=== PATIENT | male | born 1945 | race Caucasian/White ===

== ENCOUNTER 2017-07-21 07:22 | Day surgery (SDC) | payer OTHER ==
[~2017-07-21] VITALS: Ht 177.8 cm; Wt 120.8 kg
[2017-07-21] MEDS ORDERED: LISI20 PO (08:15)
[2017-07-21] MEDS ORDERED: GABA400 PO (08:16)
[2017-07-21] MEDS ORDERED: FURO20 PO (08:16)
[2017-07-21] MEDS ORDERED: CITA20 PO (08:17)
[2017-07-21] MEDS ORDERED: TERA5 PO (08:17)
[2017-07-21] MEDS ORDERED: LEVSOD50 PO (08:18)
[2017-07-21] MEDS ORDERED: Omeprazole20 M1 PO (08:18)
[2017-07-21] MEDS ORDERED: NORT25 PO (08:18)
[2017-07-21] MEDS ORDERED: Amlodipine Besyl5 MG PO (08:19)
[2017-07-21] MEDS ORDERED: Norco 5-325 Ta1 EACH PO (08:19)
== END 2017-07-21 10:40 | disposition home or self-care (01) ==
LOC: ORSCSDS 07:22
PROVIDERS: Ophthalmology
PROC: 08B Eye, Excision (ICD-10-PCS; principal; 2017-07-21 09:00)
DX: H02.045 Spastic entropion of left lower eyelid (principal); I10 Essential (primary) hypertension; Z79.899 Other long term (current) drug therapy; Z79.82 Long term (current) use of aspirin; E66.01 Morbid (severe) obesity due to excess calories; Z68.38 Body mass index [BMI] 38.0-38.9, adult
CPT/HCPCS: J2250; J3010; J7040

== ENCOUNTER 2018-08-22 22:48 | Inpatient (IN) | payer MEDICARE ==
[~2018-08-22] VITALS: Ht 177.8 cm; Wt 101.9 kg
[~2018-08-22 22:48] MED LIST: Amlodipine Besyl5 MG PO; CITA20 PO; FURO20 PO; GABA400 PO; LEVSOD50 PO; LISI20 PO; NORT25 PO; Norco 5-325 Ta1 EACH PO; Omeprazole20 M1 PO; TERA5 PO
[2018-08-22] MEDS ORDERED: Hydrochloroth12.5 MG PO (23:16)
[2018-08-22] MEDS ORDERED: ASPI81CH PO (23:18)
[2018-08-22] MEDS ORDERED: OMEG1CAP30 (23:18)
[2018-08-23 01:18] LABS: Source, Urine Catheter
[2018-08-23 01:25] LABS: BASOPHILS ABSOLUTE AUTO 0.09 K/mm3 (0.00-0.23); BASOPHILS PERCENT AUTO 1 % (0-2); EOSINOPHILS PERCENT AUTO 3 % (0-6); Hematocrit 41.2 % (37.0-53.0); IMMATURE GRAN ABSOLUTE AUTO 0.04 K/mm3 (0.00-0.10); IMMATURE GRAN PERCENT AUTO 0 % (0-1); LYMPHOCYTES ABSOLUTE AUTO 1.96 K/mm3 (0.84-5.20); LYMPHOCYTES PERCENT AUTO 21 % (21-46); MONOCYTES ABSOLUTE AUTO 0.82 K/mm3 (0.16-1.47); MONOCYTES PERCENT AUTO 9 % (4-13); Mean Corpuscular HGB 27.5 pg (26.0-34.0); Mean Corpuscular HGB Conc 31.6 g/dL (31.5-36.5); Mean Corpuscular Volume 87 fL (80-100); Mean Platelet Volume 10.5 fL (9.1-12.4); NEUTROPHILS ABSOLUTE AUTO 6.17 K/mm3 (1.96-9.15); NEUTROPHILS PERCENT AUTO 66 % (41-73); Platelet Count 298 K/mm3 (150-400); RDW Coefficient Variation 15.1 % (11.7-14.2); RDW Standard Deviation 48.4 fL (35.1-46.3); Red Blood Cell Count 4.72 M/mm3 (4.30-5.90); White Blood Cell Count 9.38 K/mm3 (4.00-11.30)
[2018-08-23 01:26] LABS: Bilirubin, Urine Neg (Neg); Blood, Urine 4+ (Neg); Glucose Qualitative, Urine Neg (Neg); Ketones, Urine Neg (Neg); Leukocyte Esterase, Urine Neg (Neg); Nitrite, Urine Neg (Neg); Protein, Urine 3+ (Neg); Urobilinogen, Urine NORM (Normal)
[2018-08-23 01:31] LABS: Appearance, Urine Clear (Clear); Color, Urine Yellow (P-Yellow)
[2018-08-23 01:32] LABS: Squamous Epithelial Cells Rare /hpf (Few); White Blood Cells, Urine 0-2 /hpf (0-5)
[2018-08-23 01:33] LABS: Amorphous Light (0-Heavy); Bacteria Few /hpf
[2018-08-23 01:43] LABS: Alanine Aminotransfer (ALT/SGP 30 U/L (12-78); Albumin, Blood 3.8 g/dL (3.4-5.0); Alk Phos 77 U/L (50-136); Anion Gap 11 mmol/L (6-16); Aspartate Aminotrans (AST/SGOT 17 U/L (12-37); Bilirubin, Total 0.3 mg/dL (0.1-1.0); Blood Urea Nitrogen 13 mg/dL (8-24); Bun/Creatinine Ratio 12.4 (12.0-20.0); CO2, Blood 25 mmol/L (21-32); Chloride, Blood 105 mmol/L (98-108); Creatinine, Blood 1.05 mg/dL (0.60-1.20); Globulin, Blood 3.7 g/dL (2.2-4.0); Glomerular Filtration Rate >60 (60-); Glucose, Blood 164 mg/dL (70-99); Potassium, Blood 3.5 mmol/L (3.5-5.5); Sodium, Blood 141 mmol/L (136-145); Total Protein, Blood 7.5 g/dL (6.4-8.2)
--- NOTE | 2018-08-23 03:04 | NUR ---
ASSUMING CARE RECEIVED PT REPORT FROM ER NURSE. PT IS BEING ADMITTED DUE TO ANGIOEDEMA. PT IS INTUBATED. PT ARRIVED TO ICU AT APPROX 0135. PT TRANSPORTED VIA STRETCHER WITH ER, RN AND RT. AT THE TIME OF ARRIVAL TO THE UNIT PT VENT SETTINGS ARE AC 15, TV 500, FIO2 60% AND PEEP 5. PT SPO2 IS MAINTAINING IN THE LOW 90'S AT THIS TIME. PT HAS COPIOUS AMOUNTS OF ORAL SECRETIONS. ORAL SECRETIONS ARE STRINGY AND CLEAR. PT TONGUE IS SWOLLEN AND QUITE LARGE AT THIS TIME. OG TUBE IN PLACE, OG PLACED TO LIS AT THE TIME OF ARRIVAL TO UNIT. PT LUNG SOUNDS ARE CLEAR AND DIM IN THE BASES. PT HAS MINIMAL SECRETIONS FROM ET TUBE AT THIS TIME. PT IS RECEIVING PROPOFOL AT 75MCG/KG/MIN AT THE TIME OF ARRIVAL TO UNIT. PT IS AGGITATED AND PULLING AT RESTRAINTS. IV INSPECTED AND FOUND TO BE INFULTRATED. PROPOFOL CHANGED TO PATENT IV LINE AND RATE TITRATED DOWN TO 35MCG/KG/MIN WITH DESIRED EFFECT. PT HAS MEDEL TEMP PROBE IN PLACE, CURRENTLY PATENT AND DRAINING CLEAR YELLOW URINE TO GRAVITY. PT IS AFEBRILE AT THIS TIME. ASSUMING CARE OF PT AT THE TIME OF ARRIVAL TO UNIT. WILL CONTINUE TO MONITOR PT.
[2018-08-23 03:43] LABS: Hematocrit 38.4 % (37.0-53.0); Mean Corpuscular HGB 27.1 pg (26.0-34.0); Mean Corpuscular HGB Conc 31.3 g/dL (31.5-36.5); Mean Corpuscular Volume 87 fL (80-100); Mean Platelet Volume 10.2 fL (9.1-12.4); Platelet Count 291 K/mm3 (150-400); RDW Coefficient Variation 15.2 % (11.7-14.2); RDW Standard Deviation 47.8 fL (35.1-46.3); Red Blood Cell Count 4.43 M/mm3 (4.30-5.90); White Blood Cell Count 12.39 K/mm3 (4.00-11.30)
[2018-08-23 04:02] LABS: Alanine Aminotransfer (ALT/SGP 29 U/L (12-78); Albumin, Blood 3.4 g/dL (3.4-5.0); Alk Phos 67 U/L (50-136); Anion Gap 9 mmol/L (6-16); Aspartate Aminotrans (AST/SGOT 17 U/L (12-37); Bilirubin, Total 0.5 mg/dL (0.1-1.0); Blood Urea Nitrogen 15 mg/dL (8-24); Bun/Creatinine Ratio 12.7 (12.0-20.0); CO2, Blood 25 mmol/L (21-32); Calcium, Blood 8.4 mg/dL (8.5-10.1); Chloride, Blood 106 mmol/L (98-108); Creatinine, Blood 1.18 mg/dL (0.60-1.20); Globulin, Blood 3.4 g/dL (2.2-4.0); Glomerular Filtration Rate >60 (60-); Glucose, Blood 205 mg/dL (70-99); Potassium, Blood 3.9 mmol/L (3.5-5.5); Sodium, Blood 140 mmol/L (136-145); Total Protein, Blood 6.8 g/dL (6.4-8.2)
--- NOTE | 2018-08-23 06:48 | NUR ---
SHIFT SUMAMRY NOTE PT REMAINS INTUBATED AT THIS TIME. PT VENT SETTINGS REMAIN UNCHANGED WITH AC 15, TV 500, FIO2 60% AND PEEP 5. PT SPO2 HAS MAINTAINED IN THE LOW 90'S THROUGH THE NIGHT. PT TONGUE AND LIPS REMAIN SWOLLEN, THOUGH SWELLING DOES APPEAR TO BE SOMEWHAT IMPROVED. PT CONTINUES TO HAVE MEDEL TEMP PROBE IN PLACE. PT URINE AT THE END OF SHIFT WAS NOTED TO BE CLOUDY, WITH SOME SEDIMENT. PT HR HAS MAINTAINED IN THE 60-70'S THROUGH THE NIGHT. PT BP HAS BEEN LABILE WITH TITRATION OF PROPOFOL. PT IS RECEIVING PROPOFOL AT 40MCG/KG/MIN AT THIS TIME. PT IS WELL SEDATED ON 40MCG/KG/MIN, WITH TITRATION DOWN OF PROPOFOL PT WILL BEGIN TO THRASH IN BED AND PULL AT RESTRAINTS VERY VIGOROUSLY. PT DOES NOT APPEAR TO BE ABLE TO FOLLOW COMMANDS OR BE REDIRECTABLE AT THESE TIMES AND REQUIRES INCREASED AMOUNTS OF PROPOFOL. [facility]
--- NOTE | 2018-08-23 10:20 | NUR ---
PT CURRENTLY CALM AND RESTING ON 40MCG OF PROFOL. VSS. PT IS RESTRAINED. ET TUBE 8.0 AND FULLY COVERED, WILL CHECK WITH RT FOR PLACEMENT. OG TO LIS WITH MINIMAL RETURN.
--- NOTE | 2018-08-23 10:24 | NUR ---
0930 PT AWAKE AND ABLE TO FOLLOW COMMANDS AFTER X-RAY AND WAS REACHING FOR ET TUBE. TONGUE REMAINS QUITE SWOLLEN AND PROTRUDING. WILL CALL THIS THE SHIFT SEDATION VACATION DUE TO LEVEL OF AGIATTION AND INC. POTENTIAL FOR SELF EXTUBATION. LR TO BE STARTED AT 100ML. PT IS 60% FIO2 NOW AND PEEP HAS BEEN INC. TO [address] TONY, SATS LOW 90 RANGE. WILL FOLLOW SEDATION NEEDS.
--- NOTE | 2018-08-23 15:26 | NUR ---
1215 PT REPOSITIONED TO R SIDE AND BECAME QUITE RESTLES AND AGITATED. PROPOFOL WAS INEFFECTIVE EVEN WITH HIGHER DOSE AND THIS LASTED FOR OVER [address] TONY WAS CONTACTED AND NEW ATIVAN AND FENTANYL ORDERS STARTED AND PT ASSSITING WELL. PROPOFOL WAS DEC TO 60 MCG AND WILL FOLLOW.
--- NOTE | 2018-08-23 18:53 | NUR ---
PT HAS REMAINED CALM WITH PRIOR PRN MEDS AND CURRENT PROPOFOL AT 50MCG. I/O NOTED. PT HAS BEEN SR WITH 1ST DEG. AV BLOCK. PT REMAINS IN RESTRAINTS AND CHARTED. FAMILY HAS BEEN IN AND MADE AWARE OF PT STATUS. LR REMAINS AT 100ML.
--- NOTE | 2018-08-23 19:15 | NUR ---
ASSUMED CARE PT INTUBATED WITH CURRENT VENT SETTINGS OF AC15/500/60%/10 AND SEDATED VIA PROPOFOL AT 50MCG/KG/MIN, LR AT 100ML/HR. PT RESPONDS BY OPENING EYES TO PAIN THEN SPONTANEOUSLY AND IS RESTLESS. FENTANYL GIVEN PER EMAR. LOWER LIP REMAINS SWOLLEN BUT IMPROVED PER AM RN. BP STABLE, ECG SHOWS SR W/ FIRST DEGREE AV BLOCK AND O2 SATS MID 90'S.
[2018-08-24 03:59] LABS: BASOPHILS ABSOLUTE AUTO 0.01 K/mm3 (0.00-0.23); BASOPHILS PERCENT AUTO 0 % (0-2); EOSINOPHILS PERCENT AUTO 0 % (0-6); Hemoglobin 11.1 g/dL (13.5-17.5); IMMATURE GRAN ABSOLUTE AUTO 0.11 K/mm3 (0.00-0.10); IMMATURE GRAN PERCENT AUTO 1 % (0-1); LYMPHOCYTES ABSOLUTE AUTO 0.83 K/mm3 (0.84-5.20); LYMPHOCYTES PERCENT AUTO 6 % (21-46); MONOCYTES ABSOLUTE AUTO 0.49 K/mm3 (0.16-1.47); MONOCYTES PERCENT AUTO 4 % (4-13); Mean Corpuscular HGB 27.6 pg (26.0-34.0); Mean Corpuscular HGB Conc 31.7 g/dL (31.5-36.5); Mean Corpuscular Volume 87 fL (80-100); Mean Platelet Volume 10.3 fL (9.1-12.4); NEUTROPHILS ABSOLUTE AUTO 11.61 K/mm3 (1.96-9.15); NEUTROPHILS PERCENT AUTO 89 % (41-73); Platelet Count 267 K/mm3 (150-400); RDW Coefficient Variation 15.2 % (11.7-14.2); RDW Standard Deviation 48.5 fL (35.1-46.3); Red Blood Cell Count 4.02 M/mm3 (4.30-5.90); White Blood Cell Count 13.05 K/mm3 (4.00-11.30)
[2018-08-24 04:20] LABS: Alanine Aminotransfer (ALT/SGP 25 U/L (12-78); Albumin, Blood 2.9 g/dL (3.4-5.0); Albumin/Globulin Ratio 0.9 (0.8-1.8); Alk Phos 49 U/L (50-136); Anion Gap 9 mmol/L (6-16); Aspartate Aminotrans (AST/SGOT 12 U/L (12-37); Bilirubin, Total 0.2 mg/dL (0.1-1.0); Blood Urea Nitrogen 16 mg/dL (8-24); Bun/Creatinine Ratio 19.2 (12.0-20.0); CO2, Blood 24 mmol/L (21-32); Calcium, Blood 7.6 mg/dL (8.5-10.1); Chloride, Blood 111 mmol/L (98-108); Creatinine, Blood 0.83 mg/dL (0.60-1.20); Globulin, Blood 3.1 g/dL (2.2-4.0); Glomerular Filtration Rate >60 (60-); Glucose, Blood 140 mg/dL (70-99); Phosphorus, Blood 3.4 mg/dL (2.5-4.9); Potassium, Blood 3.3 mmol/L (3.5-5.5); Sodium, Blood 144 mmol/L (136-145)
--- NOTE | 2018-08-24 05:30 | NUR ---
SEDATION VACATION PROPOFOL TITRATED DOWN TO 30MCG/KG/MIN. PT OPENS EYES SPONTANEOUSLY AND WILL OCCASIONALLY FOLLOW SIMPLE COMMANDS (HAND SQUEEZE) PT TOLERATED FOR A SHORT PERIOD OF TIME UNTIL ABG OBTAINED AND PT QUICKLY BECOMES RESTLESS, AGITATED AND IS NOT VERBALLY REDIRECTABLE. MEDICATED WITH BOTH FENTANYL AND ATIVAN PER EMAR AND PROPOFOL RESUMED AT 50MCG/KG/MIN.
[2018-08-24 05:39] LABS: PCO2 Arterial 46.2 mmHg (35-45); PO2 Arterial 102 mmHg (80-100)
--- NOTE | 2018-08-24 06:21 | NUR ---
SHIFT SUMMARY SEE PREVIOUS NOTES FOR SHIFT. PT REMAINS INTUBATED, VENT SETTINGS AC15/500/60%/10 AND SEDATED VIA PROPOFOL AT 50MCG/KG/MIN. PT'S TONGUE REMAINS SWOLLEN BUT IMPROVED PER BOTH RT AND ER MD WHO CAME TO CHECK ON PT. SBT NOT COMPLETED D/T O2 AND PEEP REQUIREMENTS. BP STABLE, ECG SHOWS SR WITH FIRST DEGREE BLOCK, O2 SATS MID 90'S. OG CLAMPED POST AM MEDS AND LR AT 100ML/HR.
--- NOTE | 2018-08-24 08:00 | NUR ---
INITIAL ASSESSMENT PATIENT INTUBATED AND SEDATED. PATIENT RESPONDS TO PAINFUL STIMULI AND NURSING CARE. PATIENT WEAK BUT LOCALIZING MOVEMENTS IN EXTREMITIES. NECK AND TONGUE SWELLING IMPROVING PER OFF GOING NURSE AND FAMILY. CNVI OF ZERO AT THIS TIME. PATIENT AFEBRILE. PATIENT SATTING 92% AND GREATER ON VENT SETTINGS OF AC 15, TV 500, PEEP 10, 60% FIO2. PATIENT HAS OCCASIONAL, PRODUCTIVE COUGH. SMALL AMOUNT OF THIN, CLEAR SPUTUM BEING SUCTIONED FROM ETT. PATIENT IN SB TO SR WITH FIRST DEGREE HB. HR 50S TO 60S. BP STABLE. PULSES 2+ IN STRENGTH. NO EDEMA NOTED. ABDOMEN MODERATELY DISTENDED, SOFT, WITH HYPOACTIVE BS. OG CLAMPED AT THIS TIME. DATE OF LAST BM UNKNOWN. TEMP PROBE MEDEL DRAINING YELLOW URINE WITH SEDIMENT NOTED. SKIN APPEARS WNL. LR INFUSING AT 100 MLS/ HOUR, PROPOFOL INFUSING AT 50 MCG/ KG/ MINUTE. BED LOW, CALL LIGHT IN REACH. FAMILY AT BEDSIDE. WILL CONTINUE TO MONITOR PATIENT FREQUENTLY THROUGHOUT SHIFT.
--- NOTE | 2018-08-24 10:35 | NUR ---
PATIENT HAS BEEN VERY AGITATED. DR. TONY HAS BEEN IN ROOM MULTIPLE TIMES TO ASSESS PATIENT. PATIENT HAS BEEN GIVEN PRN FENTANYL, ATIVAN AND INCREASED ON PROPOFOL. PATIENT FINALLY APPEARS RELAXED AFTER STARTING PRECEDEX DRIP. PROPOFOL DECREASED SLIGHTLY AFTER PRECEDEX DRIP STARTED. FAMILY IN ROOM WITH PATIENT. WILL CONTINUE TO MONITOR.
--- NOTE | 2018-08-24 13:31 | NUR ---
PATIENT RESTING QUIETLY IN BED- REMAINS INTUBATED AND SEDATED. NO SIGNS OF PAIN. AFEBRILE. PATIENT SATTING WELL ON AC 15, TV 500, PEEP 5, 45% FIO2. PATIENT IN SB WITH FIRST DEGREE HB. HR IN THE 50S. BP STABLE. BLOOD SUGAR OF 157. RESIDUAL OF ZERO OBTAINED FROM OG. VITAL HIGH PROTEIN TF STARTED AT GOAL RATE OF 20 MLS/ HOUR WITH 30 ML WATER FLUSH Q4H. URINE DARK YELLOW, CLOUDY, WITH SEDIMENT NOTED. DR. TONY INFORMED. PROPOFOL INFUSING AT 30 MCG/ KG/ MINUTE, PRECEDEX INFUSING AT 0.4 MCG/ KG/ HOUR, LR REMAINS AT 100 MLS/ HOUR. NO OTHER ACUTE CHANGES TO NOTE ON AT THIS TIME. WILL CONTINUE TO MONITOR.
[2018-08-24 16:01] LABS: Source, Urine Catheter
[2018-08-24 16:10] LABS: Appearance, Urine Hazy (Clear); Bilirubin, Urine Neg (Neg); Blood, Urine 5+ (Neg); Color, Urine Yellow (P-Yellow); Glucose Qualitative, Urine Neg (Neg); Ketones, Urine Neg (Neg); Leukocyte Esterase, Urine 2+ (Neg); Nitrite, Urine Neg (Neg); Protein, Urine 3+ (Neg); Urobilinogen, Urine NORM (Normal)
--- NOTE | 2018-08-24 16:52 | NUR ---
PATIENT HAD ANOTHER EPISODE OF EXTREME AGITATION. TOOK MUCH TIME FROM PRIMARY AND CHARGE NURSE, PRN MEDICATIONS, REPOSITIONING AND TITRATING UP ON PROPOFOL AND PRECEDEX DRIP TO GET PATIENT BACK UNDER CONTROL. AND FRIENDS JUST CAME IN TO SEE PATIENT AND WERE UPDATED ON PATIENT CONDITION. FIO2 INCREASED TO 50%. PRECEDEX CURRENTLY AT 0.7 MCG/ KG/ HOUR AND PROPOFOL AT 60 MCG/ KG/ MINUTE. VSS. WILL CONTINUE TO MONITOR.
[2018-08-24 17:10] LABS: Squamous Epithelial Cells Rare /hpf (Few)
[2018-08-24 17:11] LABS: Bacteria Mod /hpf; Red Blood Cells, Urine TNTC /hpf (0-2); White Blood Cells, Urine TNTC /hpf (0-5)
[2018-08-24] MEDS ORDERED: VITAMIN C500 M1 PO (17:38)
[2018-08-24] MEDS ORDERED: Ferrous Sulfat325 M2 PO (17:40)
[2018-08-24] MEDS ORDERED: TERA5 PO (17:44)
[2018-08-24] MEDS ORDERED: Synthroid25 MCG PO (17:46)
[2018-08-24] MEDS ORDERED: NORT25 PO (17:48)
[2018-08-24] MEDS ORDERED: THERA1 EACH PO (17:50)
[2018-08-24] MEDS ORDERED: FIBER LAXATIVE PO (17:51)
[2018-08-24] MEDS ORDERED: CALCIUM WITH V1 EACH PO (17:52)
[2018-08-24] MEDS ORDERED: FOLI400 PO (17:52)
[2018-08-24] MEDS ORDERED: ZESTORETIC 20-1 EAC1 PO (17:59)
--- NOTE | 2018-08-24 19:16 | NUR ---
SHIFT SUMMARY PATIENT REMAINED INTUBATED AND ON SEDATION. PATIENT HAD 2 EPISODES DURING THE DAY WHERE HE BECAME VERY AGITATED AND TOOK AROUND 1 HOUR BEFORE ABLE TO CALM DOWN. PATIENT DID NOT FOLLOW ANY COMMANDS THIS SHIFT. PATIENT FACIAL/ TONGUE SWELLING IMPROVED. FAMILY STATES THAT PATIENT HAS CHRONIC SHOULDER PAIN. PATIENT GIVEN PRN FENTANYL T/O SHIFT. VENT SETTINGS CURRENTLY AT AC 15, TV 500, PEEP 5, 50% FIO2. SPUTUM CHANGED FROM SMALL AMOUNT OF CLEAR, THIN TO MODERATE AMOUNT OF THICK, VERY PALE YELLOW SPUTUM. SPUTUM CULTURE SENT. PATIENT IN SB TO SR WITH FIRST DEGREE BLOCK AND BBB. HR MOSTLY 50S TO 60S. HR UP TO 100 WHEN PATIENT AGITATED. ABDOMEN REMAINED MODERATELY DISTENDED, SOFT, WITH HYPOACTIVE BS. VITAL HIGH PROTEIN INFUSING AT GOAL RATE OF 20 MLS/ HOUR WITH 30 ML WATER FLUSH Q4H. PATIENT TOLERATING WELL SO FAR. PATIENT DID NOT HAVE BM THIS SHIFT. MEDEL DRAINING ADEQUATE AMOUNT OF DARK YELLOW, CLOUDY URINE WITH SEDIMENT NOTED. UA SENT. NO CHANGE IN SKIN. PATIENT REPOSITIONED T/O SHIFT. LR INFUSING AT 100 MLS/ HOUR, PROPOFOL CURRENTLY AT 50 MCG/ KG/ MINUTE AND PRECEDEX AT 0.7 MCG/ KG/ HOUR. PATIENT RECEIVED 20 MEQ POTASSIUM THIS AM FOR POTASSIUM LEVEL OF 3.3. BED LOW, CALL LIGHT IN REACH. NO SIGNS OF PAIN NOTED AT THIS TIME. REPORT HAS BEEN GIVEN TO ASSUMING SENIOR NET ENGINEER NURSE.
--- NOTE | 2018-08-25 03:30 | NUR ---
SBT ATTEMPT PROPOFOL HAS BEEN SLOWLY TITRATED SINCE MINDNIGHT, DOWN FROM 50MCG/KG/MIN TO 30MCG/KG/MIN WITH PRECEDEX AT 0.7MCG/KG/HR. PRIOR TO BEING ABLE TO COMPLETELY STOP PROPOFOL PT BECOMES RESTLESS, SHIFTING BACK AND FORTH IN THE BED, EYES OPEN BUT NO TRACKING AND NO FOLLOWING COMMANDS. RT CALLED AND UPDATED, PROPOFOL COMPLETELY OFF AND RT ARRIVED IN HOPES THAT PT WILL WAKE UP ENOUGH TO COMPLETE SBT. AFTER MULTIPLE ATTEMPTS TO GET PT TO FOLLOW COMMANDS WITHOUT SUCCESS, HR UP TO 95 AND O2 SATS DROPPED TO 88% AND PT IS NOT FOLLOWING ANY COMMANDS-NO FURTHER ATTEMPTS MADE AT SBT. PROPOFOL RESUMED AT 50, 4MG ATIVAN GIVEN AND AFTER 45 MINUTES, PT AGAIN SEDATED, FIO2 INCREASED TO 70% TO MAINTAIN SATS >90%.
[2018-08-25 03:34] LABS: Hematocrit 40.2 % (37.0-53.0); Hemoglobin 12.9 g/dL (13.5-17.5); Mean Corpuscular HGB 27.9 pg (26.0-34.0); Mean Corpuscular HGB Conc 32.1 g/dL (31.5-36.5); Mean Corpuscular Volume 87 fL (80-100); Mean Platelet Volume 10.7 fL (9.1-12.4); Platelet Count 298 K/mm3 (150-400); RDW Coefficient Variation 15.5 % (11.7-14.2); RDW Standard Deviation 48.7 fL (35.1-46.3); Red Blood Cell Count 4.63 M/mm3 (4.30-5.90); White Blood Cell Count 14.99 K/mm3 (4.00-11.30)
[2018-08-25 03:51] LABS: Albumin, Blood 3.2 g/dL (3.4-5.0); Anion Gap 8 mmol/L (6-16); Blood Urea Nitrogen 23 mg/dL (8-24); Bun/Creatinine Ratio 29.8 (12.0-20.0); CO2, Blood 27 mmol/L (21-32); Calcium, Blood 8.5 mg/dL (8.5-10.1); Chloride, Blood 106 mmol/L (98-108); Creatinine, Blood 0.77 mg/dL (0.60-1.20); Glomerular Filtration Rate >60 (60-); Glucose, Blood 157 mg/dL (70-99); Magnesium, Blood 2.2 mg/dL (1.6-2.4); Phosphorus, Blood 3.4 mg/dL (2.5-4.9); Potassium, Blood 3.7 mmol/L (3.5-5.5); Sodium, Blood 141 mmol/L (136-145)
[2018-08-25 05:06] LABS: PCO2 Arterial 42.9 mmHg (35-45); PO2 Arterial 65.7 mmHg (80-100); pH Blood Arterial 7.45 (7.35-7.45)
--- NOTE | 2018-08-25 06:40 | NUR ---
SHIFT SUMMARY SEE PREVIOUS NOTES FOR SHIFT RE: SBT FAIL. PT REMAINS INTUBATED-VENT SETTINGS OF AC15/500/70%/5. SEDATION VIA PROPOFOL AT 50MCG/KG/MIN AND PRECEDEX AT 0.4MCG/KG/HR. PRECEDEX HAS BEEN TITRATED DOWN D/T HR IN THE 40'S. LR AT 100ML/HR, TF REMAINS AT GOAL OF 20ML/HR WITH MINIMAL RESIDUALS FOR SHIFT. VSS, ECG SHOWS SB W/ FIRST DEGREE AVB, O2 SATS CURRENTLY LOW 90'S AND FIO2 HAD TO BE TITRATED UP FROM 50% TO 70% D/T MAINTAINED SATS OF 88%. SPUTUM PRODUCTION INCREASED THIS SHIFT WELL.
--- NOTE | 2018-08-25 08:30 | NUR ---
INITIAL ASSESSMENT PATIENT INTUBATED AND SEDATED. PATIENT RESPONDS TO PAINFUL STIMULI. PATIENT ABLE TO MOVE ALL EXTREMITIES. PATIENT AFEBRILE. PATIENT DOES NOT APPEAR TO BE IN ANY PAIN AT THIS TIME. PATIENT SATTING WELL ON AC 15, PEEP 5, TV 500, 70% FIO2. LUNGS CLEAR IN UPPER LOBES AND DIMINISHED IN LOWER LOBES. OCCASIONAL, PRODUCTIVE COUGH NOTED. MODERATE AMOUNT OF THICK, PALE YELLOW SPUTUM BEING SUCTIONED FROM ETT. PATIENT IN SB WITH FIRST HEART BLOCK AND BBB. HR IN THE 40S TO 50S. BP STABLE. PULSES STRONG. ABDOMEN MODERATELY DISTENDED, SOFT, WITH HYPOACTIVE BS. OG IN PLACE. TF INFUSING AT GOAL RATE OF 20 MLS/ HOUR WITH 30 ML WATER FLUSH Q4H. RESIDUAL OF 25 ML OBTAINED AND REINSTILLED THIS AM. TEMP PROBE MEDEL DRAINING DARK YELLOW, CLOUDY URINE WITH SEDIMENT NOTED. SKIN WNL. LR INFUSING AT 100 MLS/ HOUR, PROPOFOL AT 55 MCG/ KG/ MINUTE AND PRECEDEX AT 0.4 MCG/ KG/ HOUR. BED LOW, CALL LIGHT IN REACH. FAMILY AT BEDSIDE. WILL CONTINUE TO MONITOR PATIENT FREQUENTLY THROUGHOUT SHIFT.
--- NOTE | 2018-08-25 12:46 | NUR ---
PATIENT REMAINS INTUBATED AND SEDATED. NO SIGNS OF PAIN AT THIS TIME. AFEBRILE. PATIENT SATTING WELL ON AC 15, PEEP 8, TV 500, 50% FIO2. PATIENT IN SB WITH FIRST DEGREE BLOCK AND BBB. HR IN THE 40S. BP STABLE. RESIDUAL OF 35 MLS FROM OG OBTAINED AND REINSTILLED. BLOOD GLUCOSE OF 155- COVERAGE ADMINISTERED. URINE NOW DARK YELLOW/ GREEN IN COLOR, CLOUDY, WITH SEDIMENT NOTED. PROPOFOL CURRENTLY AT 40 MCG/ KG/ MINUTE AND PRECEDEX AT 0.6 MCG/ KG/ HOUR. NO OTHER ACUTE CHANGES TO NOTE ON AT THIS TIME. FAMILY AT BEDSIDE. WILL CONTINUE TO MONITOR.
--- NOTE | 2018-08-25 14:29 | NUR ---
Mr. Donovan is ventilated and sedated. Son at bedside. Prayer offered and accepted. Son was quiet, but verbalized appreciaition for prayer. Son tells me he beleives his dad will improve and recover. No fears or concerns presented. Surgical Specialist services will remain available.
--- NOTE | 2018-08-25 17:00 | NUR ---
PATIENT JUST HAD VERY AGITATED EPISODE AND HAS FINALLY CALMED DOWN AFTER INCREASING PROPOFOL AND GIVING PRN ATIVAN AND FENTANYL. PATIENT'S SON, JANET, IN THE ROOM. PATIENT OPENED EYES A COUPLE OF TIMES DURING AGITATED EPISODE BUT DID NOT TRACK- STAYED STARING AT CEILING. HAS NOT FOLLOWED ANY COMMANDS ALL SHIFT. PATIENT REMAINS AFEBRILE. PATIENT SATTING WELL ON AC 15, PEEP 8, TV 500, 50% FIO2. PATIENT IN SB WITH BBB AND FIRST DEGREE BLOCK. HR IN THE 40S. BP STABLE. RESIDUAL OF 10 MLS OBTAINED FROM OG- REINSTILLED. PROPOFOL AT 50 MCG/ KG/ MINUTE, PRECEDEX AT 0.2 MCG/ KG/ HOUR. WILL CONTINUE TO MONITOR.
--- NOTE | 2018-08-25 18:15 | NUR ---
SPOKE TO DR. ZHAO ON THE PHONE. INFORMED NURSE TO SKIP SEDATION VACATION AND WEAN IN THE MORNING. INSTRUCTED TO KEEP PATIENT CALM ON SEDATION AND TRY TO TITRATE FIO2 DOWN TO 40% IF ABLE. IF NUMBERS LOOK GOOD THEN WILL EXTUBATE ONCE SHE GETS HERE. FAMILY INFORMED.
--- NOTE | 2018-08-25 19:10 | NUR ---
SHIFT SUMMARY PATIENT REMAINED INTUBATED AND ON SEDATION. PATIENT HAD TWO EPISODES OF AGITATION DURING SHIFT. PATIENT REMAINED ON PRECEDEX AND PROPOFOL AND RECEIVED PRN FENTANYL AND ATIVAN NEEDED FOR PAIN AND AGITATION. NECK AND TONGUE SWELLING APPEARS TO BE "PRETTY MUCH GONE" PER FAMILY REPORT. PATIENT REMAINED AFEBRILE. PATIENT ON AC 15, PEEP CHANGED FROM 5 TO 8, TV OF 500, FIO2 CURRENTLY AT 55%. MODERATE AMOUNT OF THICK, PALE YELLOW SPUTUM BEING SUCTIONED FROM ETT. PATIENT HAS BEEN SB TO SR WITH BBB AND FIRST DEGREE BLOCK. HR MOSTLY 40S TO 50S BUT INCREASES UP TO 100 WITH AGITATION. BP REMAINED STABLE. TF REMAINS INFUSING AT GOAL. RESIDUALS 35 MLS AND UNDER. MEDEL DRAINING DARK YELLOW/ GREEN, CLOUDY URINE WITH SEDIMENT NOTED. GOOD OUTPUT. LR INFUSING AT 100 MLS/ HOUR, PROPOFOL AT 45 MCG/ KG/ MINUTE AND PRECEDEX AT 0.2 MCG/ KG/ HOUR. BED LOW, CALL LIGHT IN REACH. PATIENT APPEARS COMFORTABLE AT THIS TIME. REPORT HAS BEEN GIVEN TO ASSUMING GRAPHIC COORDINATOR NURSE.
--- NOTE | 2018-08-25 19:15 | NUR ---
ASSUMED CARE REPORT AND ASSESSMENT COMPLETE. PER AM RN, GOAL IS TO MAINTAIN SEDATION OVERNIGHT, ATTEMPT TO TITRATE FIO2 DOWN TO 40% AND DR ZHAO PLANS TO EVAL IN AM FOR EXTUBATION D/T AGITATION DURING SBT. PT REMAINS ON VENT W/ SETTINGS AT AC15/500/55%/8, SEDATION VIA PROPOFOL AT 45MCG/KG/MIN AND PRECEDEX AT 0.2MCG/KG/HR. PT RESPONDS TO PAIN, DOES NOT FOLLOW COMMANDS. WITH ANY DOWNWARD TITRATION OF SEDATION, PT IS AGITATED AND IT TAKES 30-60 MINUTES TO OBTAIN SEDATION SCORE OF 3-4. TF AT GOAL-RESIDUALS <50ML. BP STABLE, ECG SHOWS SR/SB 50-60 AND O2 SATS AT 91%.
--- NOTE | 2018-08-25 23:34 | NUR ---
PRECEDEX PRECEDEX ON STANDBY. PT'S HR SUSTAINING AT 40. PLAN TO MEDICATE WITH FENTANYL AND ATIVAN SEDATION ADJUNTS TO PROPOFOL.
--- NOTE | 2018-08-26 06:36 | NUR ---
SHIFT SUMMARY NO ACUTE EVENTS OVERNGIHT. PRECEDEX REMAINS OFF, PROPOFOL AT 50MCG/KG/MIN AND BOTH FENTANYL AND ATIVAN GIVEN SEDATION ADJUNCTS. VENT SETTINGS UNCHNAGED FROM START OF SHIFT, UNABLE TO TITRATE FIO2 DOWNWARD D/T O2 SATS MAINTIANING 90-92 OR LESS WHEN MORE AWAKE. LR AT 100ML/HR, TF AT GOAL OF 20ML/HR WITH MINIMAL RESIDUALS. BP STABLE ECG SHOWS SR-SB.
--- NOTE | 2018-08-26 07:00 | NUR ---
RECEIVED REPORT FROM AMAN MCMANUS, AND ASSUMED CARE OF PT.
--- NOTE | 2018-08-26 08:30 | NUR ---
DR. ZHAO AT BEDSIDE FOR EVALUATION. NEW ORDERS PROVIDED.
--- NOTE | 2018-08-26 09:05 | NUR ---
LAB AT BEDSIDE.
--- NOTE | 2018-08-26 09:10 | NUR ---
RADIOLOGY AT BEDSIDE FOR CHEST XRAY.
--- NOTE | 2018-08-26 09:15 | NUR ---
LAB AT BEDSIDE.
[2018-08-26 09:17] LABS: BASOPHILS ABSOLUTE AUTO 0.01 K/mm3 (0.00-0.23); BASOPHILS PERCENT AUTO 0 % (0-2); EOSINOPHILS PERCENT AUTO 0 % (0-6); Hemoglobin 13.4 g/dL (13.5-17.5); IMMATURE GRAN ABSOLUTE AUTO 0.24 K/mm3 (0.00-0.10); IMMATURE GRAN PERCENT AUTO 2 % (0-1); LYMPHOCYTES ABSOLUTE AUTO 0.67 K/mm3 (0.84-5.20); LYMPHOCYTES PERCENT AUTO 5 % (21-46); MONOCYTES ABSOLUTE AUTO 1.09 K/mm3 (0.16-1.47); MONOCYTES PERCENT AUTO 9 % (4-13); Mean Corpuscular HGB 27.4 pg (26.0-34.0); Mean Corpuscular HGB Conc 32.7 g/dL (31.5-36.5); Mean Platelet Volume 10.3 fL (9.1-12.4); NEUTROPHILS ABSOLUTE AUTO 10.37 K/mm3 (1.96-9.15); NEUTROPHILS PERCENT AUTO 84 % (41-73); Platelet Count 285 K/mm3 (150-400); RDW Coefficient Variation 15.3 % (11.7-14.2); Red Blood Cell Count 4.89 M/mm3 (4.30-5.90); White Blood Cell Count 12.38 K/mm3 (4.00-11.30)
[2018-08-26 09:18] LABS: Mean Corpuscular Volume 84 fL (80-100)
[2018-08-26 09:36] LABS: PCO2 Arterial 42.8 mmHg (35-45); PO2 Arterial 61.1 mmHg (80-100); pH Blood Arterial 7.51 (7.35-7.45)
--- NOTE | 2018-08-26 09:38 | NUR ---
NURSING SUMMARY EYES CLOSED, DOES NOT FOLLOW DIRECTIONS, AGITATED, PULLING UP ON RESTRAINTS, MOVING BODY ALL OVER THE BED, PROPOFOL AT 50 MCG/KG/MIN, MEDICATED TWICE THIS AM WITH FENTANYL FOR PAIN. JANET/SON ADVISED THAT PT HAS CHRONIC BACK AND SHOULDER PAIN. THE FIRST DOSE OF FENTANYL APPEARED TO PROVIDE SMALL AMT OF RELIEF, THE SECOND DOSE PROVIDED GOOD RELIEF, PT NOT AGITATED, MOVING ALL OVER THE BED, OR PULLING UP ON RESTRAINTS. VENTINLATOR SETTINGS AT 15/8/500/55%, SATS 88-93%, FREQUENT DEEP AND ORAL SUCTIONING FOR MODERATE AMOUNTS OF THICK WHITE/YELLOW SPUTUM. DR. ZHAO AWARE THAT SATS SOMETIMES HOVER AT 88-89% WHICH SHE AGREES IS ACCEPTABLE, HOVERING ANY LOWER INSTRUCTIONS TO INCREASE FIO2, RESPIRATORY THERAPY AWARE. LUNGS COARSE THROUGHOUT. ABDOMEN DISTENDED, DOES NOT APPEAR TO BE TENDER, RECEIVING OROGASTRIC TUBE FEEDINGS OF VITAL HP AT 20 CC/HR WITH WATER FLUSHES OF 30 CC EVERY 4 HOURS, NO RESIDUAL. MEDEL IN PLACE, EMPTIED 1,200 CC /GREENISH YELLOW URINE. SCROTUM WITH 1+ EDEMA, BILATERAL SCLERA EDEMA, PUPILS BRISK REACTION TO LIGHT. REPOSITIONING EVERY 1-2 HOURS TO ASSIST WITH PT'S COMFORT. JANET/SON AT BEDSIDE. PT HAD CHEST XRAY, LABS, AND ABG DONE THIS AM. WILL HAVE CHEST CT AROUND [address] DEPT. BILATERAL AC 18G IV'S, LEFT INFUSING LR AT TKO AND RIGHT INFUSING PROPOFOL GTT.
--- NOTE | 2018-08-26 11:30 | NUR ---
CT SCAN PATIENT TAKEN TO CT SCAN VIA HOSPITAL BED WITH PORTABLE VENTILATOR AND PORTABLE MONITOR. PATIENT MEDICATED WITH FENTANYL 50 MCG IVP FOR PAIN PRIOR TO GOING TO CT. VERSED 4 MG IVP GIVEN JUST BEFORE PROCEDURE DUE TO SEVERE AGITATION AND INABILITY TO HOLD STILL ON THE CT SCAN TABLE. PT RELAXED AFTER RECEIVING VERSED. CT SCAN WAS COMPLETED. PT BROUGHT BACK TO ICU ROOM 8 AT 1220. AGITATED AND APPEARS TO BE IN PAIN, MEDICATED WITH FENTANYL 50 MCG IVP.
[2018-08-26 14:32] LABS: Base Excess Venous 11.3 mmol/L; Bicarbonate Venous 33.9 mmol/L (24.0-30.0); PCO2 Venous 43.1 mmHg (38-42); PO2 Venous 121 mmHg (38-42); pH Blood Venous 7.51 (7.34-7.37)
--- NOTE | 2018-08-26 15:28 | NUR ---
PT WITH VTACH, BP ELEVATED, AGITATED, MEDICATED WITH ATIVAN 4MG IVP, EKG DONE, RETURNED TO NSR WITH 1 DEG AVB, CALLED DR. ZHAO, NEW ORDER FOR MAGNESIUM AND POTASSIUM LAB LEVELS.
[2018-08-26 16:18] LABS: Magnesium, Blood 2.4 mg/dL (1.6-2.4); Potassium, Blood 3.5 mmol/L (3.5-5.5)
--- NOTE | 2018-08-26 18:07 | NUR ---
NURSING SUMMARY SLEEPING, RESPONDS TO PAINFUL STIMULI, DOES NOT FOLLOW DIRECTIONS OR OPEN EYES WHEN REQUESTED, DOES NOT TRACK WITH HIS EYES WHEN HE OPENS THEM HIMSELF. PT SEVERELY AGITATED THROUGHOUT THE DAY. INCREASED PROPOFOL GTT TO 60 MCG/KG/MIN AND HAVE GIVEN SEVERAL DOSES OF FENTANYL 50 MCG IVP AND ATIVAN 4MG IVP X 2 DOSES TODAY. PT CURRENTLY RESTING COMFORTABLY. VENTILATOR SETTINGS 15/8/60%/8, SUCTIONING PRN. DR. ZHAO DOES NOT WANT A WEAN TRIAL IN THE AM. SHE WANTS STAFF TO WAIT UNTIL SHE COMES IN IN THE MORNING TO DETERMINE WHEN/IF TO EXTUBATE. SB - SR ON MONITOR, HR 50'S - 60'S MOST OF THE TIME. PT DID EXPERIENCE RUNS OF VTACH TODAY WHILE AGITATED. ONCE PT CALMED DOWN HE DID NOT HAVE ANY ADDITIONAL VTACH. DC'D IVF TODAY. MEDEL OUTPUT GREENISH/YELLOW URINE FOR 3,625 CC THIS SHIFT. SCROTAL EDEMA AND SCLERAL EDEMA. ABDOMEN DISTENDED, NON-TENDER, TUBE FEEDINGS AT 20 CC/HR WITH WATER FLUSHES OF 30 CC EVERY 4 HOURS. CBG'S EVERY 6 HOURS. 1200 CBG = 140 AND 1800 CBG = 161, 4 UNITS HUMALOG GIVEN FOR 161 AT 1800. PT'S SON/JANET AT BEDSIDE. BILATERAL FOREARM 18G IV SITES AND LEFT AC 18G, INFUSING PROPOFOL AT 60 MCG/KG/MIN AND IV ANTIBIOTICS AND LR AT TKO.
--- NOTE | 2018-08-26 22:11 | NUR ---
ASSUMING CARE RECEIVED PT REPORT FROM AMAN NICE. PT IS INTUBATED AT THE TIME OF SHIFT REPROT. PT IS ADMITTED DUE TO ANGIOEDEMA. PT VENT SETTINGS AT THE TIME OF SHIFT REPORT ARE AC 15, TV 500, FIO2 60%, AND PEEP 8. PT SPO2 IS IN THE LOW 90'S AT THE TIME OF SHIFT REPORT. AT THE TIME OF THIS NOTE PT FIO2 HAS BEEN TITRATED DOWN TO 55% AND SPO2 IS MAINTAINING IN THE HIGH 90'S. PT IS RECEIVING PROPOFOL AT 60MCG/KG/MIN. PT IS RESPONSIVE TO NOXIOUS STIMULI ONLY. PER REPORT AND ASSESSMENT, PT WILL BECOME HIGHLY AGITATED AND ATTEMPT TO PULL AT ETT TUBE AND CLIMB OUT OF BED WITH ANY TITRATION OF PROPOFOL. PT REMAINS UNABLE TO FOLLOW COMMANDS OR RESPOND TO VERBAL STIMULI THROUGH THOSE EPISODES. PT IS IN BILATERAL SOFT WRIST RESTRAINTS AT THIS TIME FOR PREVENTION OF SELF EXTUBATION. PT HAS A HX OF CHRONIC BACK PAIN. FENTANYL 50MCG PROVIDED THROUGH PERIOD OF AGITATION WITH SOME EFFECT. PT IS RECEIVING TUBE FEEDING OF VITAL HIGH SOLUTION AT GOAL RATE OF 20ML/HR. MINIMAL RESIDUALS FROM OG TUBE AT THIS TIME. PT IS RECEIVING PROPOFL AT 60MCG/KG/MIN AND LR AT TKO. PT SON IS AT BEDSIDE. PT HAS MEDEL TEMP PROBE IN PLACE AT THIS ITME. PT URINE IS GREENISH YELLOW WITH SOME NOTED SEDIMENT. ASSUMED CARE OF PT AT THE TIME OF SHIFT REPORT. WILL CONTINUE TO MONITOR.
--- NOTE | 2018-08-27 02:05 | NUR ---
AGITATION AT APPROX 0000 PT BECAME MORE RESTLESS AND AGITATED. PT WAS PROVIDED 50MCG FENTANYL WITH LITTLE EFFECT. PT WAS PROVIDED 2MG ATIVAN WITH LITTLE EFFECT AND WAS PROVIDED AN ADDITIONAL 2MG. PT HR INCREASED TO THE 70'S AND SBP INCREASED TO THE 170-180'S RANGE. PT REMAIND AGITATED AND PROPOFOL WAS INCREASED TO 70MCG/KG/MIN. PATENCY OF IV LINE WAS CONFIRMED. DR ZHAO WAS CALLED AND INFORMED OF PTS INCREASED AND CONTINUED AGITATION. ORDER RECEIVED TO INCREASE FENTANYL DOSE RANGE TO 50-200 MCG. INSTRUCTIONS ALSO RECEIVED TO INITIATE PRECEDEX IF FENTANYL IS INEFFECTIVE. 100MCG FENTANYL PROVIDED INSTRUCTED. 100MCG OF FENTANYL APPEARS TO BE EFFECTIVE. PT BP DECREASED TO THE 130'S RANGE SYSTOLIC, PT APPEARED TO BE LESS AGITATED. PRECEDEX NOT STARTED AT THIS TIME. WILL CONTINUE TO MONITOR PT.
[2018-08-27 03:40] LABS: BASOPHILS ABSOLUTE AUTO 0.01 K/mm3 (0.00-0.23); BASOPHILS PERCENT AUTO 0 % (0-2); EOSINOPHILS PERCENT AUTO 0 % (0-6); Hematocrit 36.9 % (37.0-53.0); IMMATURE GRAN ABSOLUTE AUTO 0.16 K/mm3 (0.00-0.10); IMMATURE GRAN PERCENT AUTO 2 % (0-1); LYMPHOCYTES ABSOLUTE AUTO 0.66 K/mm3 (0.84-5.20); LYMPHOCYTES PERCENT AUTO 6 % (21-46); MONOCYTES ABSOLUTE AUTO 0.64 K/mm3 (0.16-1.47); MONOCYTES PERCENT AUTO 6 % (4-13); Mean Corpuscular HGB 27.5 pg (26.0-34.0); Mean Corpuscular HGB Conc 32.5 g/dL (31.5-36.5); Mean Corpuscular Volume 84 fL (80-100); Mean Platelet Volume 10.8 fL (9.1-12.4); NEUTROPHILS ABSOLUTE AUTO 9.19 K/mm3 (1.96-9.15); NEUTROPHILS PERCENT AUTO 86 % (41-73); Platelet Count 271 K/mm3 (150-400); RDW Coefficient Variation 15.4 % (11.7-14.2); RDW Standard Deviation 47.3 fL (35.1-46.3); Red Blood Cell Count 4.37 M/mm3 (4.30-5.90); White Blood Cell Count 10.66 K/mm3 (4.00-11.30)
[2018-08-27 03:55] LABS: Albumin, Blood 2.9 g/dL (3.4-5.0); Anion Gap 8 mmol/L (6-16); Blood Urea Nitrogen 27 mg/dL (8-24); Bun/Creatinine Ratio 38.1 (12.0-20.0); CO2, Blood 32 mmol/L (21-32); Calcium, Blood 8.1 mg/dL (8.5-10.1); Chloride, Blood 99 mmol/L (98-108); Creatinine, Blood 0.71 mg/dL (0.60-1.20); Glomerular Filtration Rate >60 (60-); Glucose, Blood 165 mg/dL (70-99); Phosphorus, Blood 3.4 mg/dL (2.5-4.9); Potassium, Blood 3.3 mmol/L (3.5-5.5); Sodium, Blood 139 mmol/L (136-145)
--- NOTE | 2018-08-27 06:07 | NUR ---
SHIFT SUMMAR NOTE PT REMAINS INTUBATED AND SEDATED. PT VENT ETTINGS ARE AC 15, TV 500, FIO2 55%, AND PEEP 8. PT SPO2 IS MAINTAINING IN THE MID TO LOW 90'S. PT IS ON 60 MCG/KG/MIN OF PROPOFOL FOR SEDATION AT THIS TIME. ATTEMPTS TO TITRATE PROPOFOL DOWN WERE UNSUCCESSFUL THROUGH THE NIGHT. PT APPEARS TO EITHER BE HIGHLY SEDATED OR PULLING AT RESTRAINTS AND MOVING IN BED. PT HAS NOT FOLLOWED ANY COMMANDS THROUGH THE NIGHT. PT APPEARS TO BE RESPONSIVE TO NOXIOUS STIMULI ONLY. PT CONTINUES TO HAVE MEDEL TEMP PROBE IN PLACE. PT URINE IS GREEN COLORED AT THIS TIME. PT CONTINUES TO RECEIVE TUBE FEEDING AT GOAL RATE OF 20ML/HR. PT HAS HAD MINIMAL RESIDUALS THROUGHOUT THE NIGHT. PT BP AND HR HAVE BEEN LABILE THROUGH THE NIGHT R/T AGITATION AND/OR PAIN. PT HAS REQUIRED FREQUENT DOSES OF FENTANYL THROUGHOUT THE NIGHT. REFER TO VITAL SIGN FLOW SHEET AND EMAR FOR TIMES AND DETAILS. WILL REPORT OFF TO ONCOMING DAY SHIFT NURSE.
--- NOTE | 2018-08-27 07:44 | NUR ---
ASSUMED CARE ASSUMED CARE OF PT AT 0700. REPORT RECEIVED FROM AMAN KURTZ. PT INTUBATED, SEDATED. PT WITHDRAWING TO PAINFUL STIMULI AT THIS TIME. VENT SETTINGS AC 15, TV 500, PEEP 8, FiO2 55%, SPO2 89%, ACTUAL RR 16. LUNG SOUNDS CLEAR T/O, DIM AT BEATRICE BASES. MONITOR SHOWS SINUS CHRISTINA WITH HR LOW 50'S. PT HAS OG TUBE IN PLACE WITH VHP TF AT GOAL OF 20ML/HR. ABDOMEN ROUND, SOFT, MODERATELY DISTENDED, BT'S HYPOACTIVE. PT HAS TEMP MEDEL CATH IN PLACE DRAINING DARK YELLOW URINE TO GRAVITY. PT HAS 3 PIV'S - PROPOFOL AT 60MCG/KG, NS TKO. PT HAS BEATRICE SOFT WRIST RESTRAINTS IN PLACE TO PROTECT LINES, ET TUBE. PT WAS SWITCHED VIA CEILING LIFT TO CPT BED THIS AM. BED CPT INITIATED. PT'S SON AT BEDSIDE. WILL CONTINUE TO MONITOR PT CLOSELY.
--- NOTE | 2018-08-27 11:03 | NUR ---
DR. ZHAO/SBT DR. ZHAO CHANGED VENT TO SPONTANEOUS, PS 5, PEEP 8, FiO2 45%. PT PULLING 400-600 TIDAL VOLUMES, SPO2 89%, RR 11-14. PLAN TO MONITOR PT FOR 60 MINUTES WITH THESE SETTINGS IF TOLERATED. MAY CONSIDER EXTUBATION.
--- NOTE | 2018-08-27 11:19 | NUR ---
PT SWITCHED BACK TO AC VENT SETTINGS R/T HYPOXIA.
[2018-08-27 13:23] LABS: Vancomycin, Trough 9.8 ug/mL (5.0-10.0)
--- NOTE | 2018-08-27 19:21 | NUR ---
SHIFT SUMMARY PT HAD FAILED SBT THIS MORNING, HAS BEEN ON AC VENT SETTINGS SINCE AND HAD BEEN DOING FINE UNTIL ATTEMPTING TO DECREASE PROPOFOL THIS AFTERNOON. WITH DECREASE OF PROPOFOL FROM 60 TO 50MCG/KG, PT BECAME AGITATED, HYPERTENSIVE AND DROPPED SPO2 TO 86%. INCREASED PROPOFOL BACK TO 60, INCREASED FENTANYL GTT TO 75MCG/HR AND GAVE FENTANYL PUSH - PT REMAINS AGITATED. INCREASED FIO2 TO 65% TO GET SATS >88%. DR. ZHAO NOTIFIED - STATES MAY GO UP ON PROPOFOL OR INCREASE FENTANYL GTT RATE TO GET PT SEDATED AND LEAVE HIM SEDATED OVERNIGHT WITHOUT ATTEMPTING TO DECREASE SEDATION UNTIL DAY SHIFT TOMORROW. VHP TUBE FEED WAS DECREASED TO 15ML/HR PER ORDERS. MEDEL OUTPUT 1800ML PALE GREEN TO GRAVITY. BEATRICE SOFT WRIST RESTRAINTS REMAIN PLACE TO PROTECT LINES, TUBES. 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
--- NOTE | 2018-08-27 21:09 | NUR ---
ASSUMING CARE. RECEIVED PT REPORT FROM AMAN NIEVES. PT REMAINS INTUBATED AND SEDATED AT THIS TIME. PT VENT SETTINGS ARE AC 15, TV 500, FIO2 65% AND PEEP 8. PT SPO2 IS MAINTAINING IN THE 88-92 RANGE. PT IS RECEIVING PROPOFOL AT 60MCG/KG/MIN AT THE TIME OF SHIFT REPORT. PT IS ALSO RECEIVING FENTANYL GTT AT 75MCG/HR. PT IS HIGHLY AGITATED AND IS PULLING AT RESTRAINTS AND MOVING SELF IN BED, REQUIRING REPOSITIONING TO KEEP PT IN BED. PER REPORT PT WAS PROVIDED 100MCG FENTANYL PUSH JUST PRIOR TO SHIFT REPORT. PT REMAINS HIGHLY AGITATED. JUST AFTER SHIFT REPORT PT WAS PROVIDED 2MG ATIVAN. THERE WAS MINIMAL NOTED EFFECT FROM ATIVAN. FENTANYL GTT WAS INCREASED TO 100MCG/HR AND PROPOFOL WAS INCREASED TO 65MCG/KG/MIN. PT WAS REPOSITIONED FOR COMFORT AND ICE PACKS WERE PLACED TO SHOULDERS PT HAS A HX OF CHRONIC SHOULDER PAIN PER FAMILY. PT CONTIUED TO BE HIGHLY AGITATED AND WAS PROVIDED AN ADDITIONAL 100MCG OF FENTANYL PER EMAR PARAMETERS. PT APPEARED TO RESPOND TO FENTANYL PUSH AND APPEARED TO BECOME MORE RELAXED AND COMFORTABLE. THROUGH PERIOD OF AGITATION PT DID NOT APPEAR TO RESPOND TO VERBAL STIMULI OR FOLLOW ANY COMMANDS. PT IS RECEIVING TUBE FEEDING OF VITAL HIGH PROTEIN AT GOAL RATE OF 15ML/HR. PT HAD APPROX 120ML RESIDUALS NOTED AT THE TIME OF INITIAL ASSESSMENT. PT LUNG SOUNDS ARE COARSE IN THE UPPER LOBES AND DIMINISHED IN THE BASES. PT HAS MODERATE AMOUNTS OF THIN SECRETIONS, SECRETIONS APPEAR TO BE CLEAR TO WHITE. PT BOWEL TONES ARE HYPOACTIVE. PT HAS MEDEL TEMP PROBE IN PLACE. PT URINE IS DARK AND GREEN IN COLOR. PT TEMPERATURE IS IN THE 98.8 RANGE. IN ADDITION TO PROPOFOL AT 65MCG/KG/MIN AND FENTANYL AT 100MCG/HR, PT IS RECEIVING NS AT TKO. ASSUMING CARE OF PT AT THE TIME OF SHIFT REPORT. WILL CONTINUE TO MONITOR PT.
[2018-08-28 03:11] LABS: BASOPHILS ABSOLUTE AUTO 0.03 K/mm3 (0.00-0.23); BASOPHILS PERCENT AUTO 0 % (0-2); EOSINOPHILS ABSOLUTE AUTO 0.01 K/mm3 (0.00-0.68); EOSINOPHILS PERCENT AUTO 0 % (0-6); Hematocrit 37.4 % (37.0-53.0); Hemoglobin 12.1 g/dL (13.5-17.5); IMMATURE GRAN ABSOLUTE AUTO 0.21 K/mm3 (0.00-0.10); IMMATURE GRAN PERCENT AUTO 2 % (0-1); LYMPHOCYTES ABSOLUTE AUTO 1.99 K/mm3 (0.84-5.20); LYMPHOCYTES PERCENT AUTO 18 % (21-46); MONOCYTES ABSOLUTE AUTO 1.07 K/mm3 (0.16-1.47); MONOCYTES PERCENT AUTO 10 % (4-13); Mean Corpuscular HGB 27.3 pg (26.0-34.0); Mean Corpuscular HGB Conc 32.4 g/dL (31.5-36.5); Mean Corpuscular Volume 84 fL (80-100); Mean Platelet Volume 10.6 fL (9.1-12.4); NEUTROPHILS ABSOLUTE AUTO 7.82 K/mm3 (1.96-9.15); NEUTROPHILS PERCENT AUTO 70 % (41-73); Platelet Count 265 K/mm3 (150-400); RDW Coefficient Variation 15.2 % (11.7-14.2); RDW Standard Deviation 46.6 fL (35.1-46.3); Red Blood Cell Count 4.43 M/mm3 (4.30-5.90); White Blood Cell Count 11.13 K/mm3 (4.00-11.30)
[2018-08-28 03:27] LABS: Albumin, Blood 2.8 g/dL (3.4-5.0); Anion Gap 8 mmol/L (6-16); Blood Urea Nitrogen 28 mg/dL (8-24); Bun/Creatinine Ratio 39.9 (12.0-20.0); CO2, Blood 32 mmol/L (21-32); Calcium, Blood 8.3 mg/dL (8.5-10.1); Chloride, Blood 100 mmol/L (98-108); Glomerular Filtration Rate >60 (60-); Glucose, Blood 105 mg/dL (70-99); Magnesium, Blood 2.5 mg/dL (1.6-2.4); Phosphorus, Blood 3.7 mg/dL (2.5-4.9); Potassium, Blood 3.3 mmol/L (3.5-5.5); Sodium, Blood 140 mmol/L (136-145)
--- NOTE | 2018-08-28 07:23 | NUR ---
SHIFT SUMMARY NOTE PT REMAINS INTUBATED AND SEDATED AT THIS TIME. PT VENT SETTINGS HAVE REMAINED UNCHANGED THROUGH THE NIGHT. VENT SETTINGS AT THIS TIME ARE AC 15, TV 500, FIO2 65% AND PEEP 8. PT IS RECEIVING PROPOFOL AT 50MCG/KG/MIN AND FENTANYL GTT AT 50MCG/HR AT THIS TIME. PT HAS APPEARED TO REMAIN CALM AND SEDATED THROUGH THE NIGHT WITHOUT ANY OBSERVED PERIODS OF AGITATION AFTER INITIAL EPISODE AT THE START OF SHIFT THAT WAS PREVIOUSLY NOTED. PT CONTINUES TO RECEIVE NS AT TKO. PT CONTINUES TO RECEIVE TUBE FEEDING AT GOAL RATE OF 15ML/HR. PT HAD APPROX 120ML OF RESIDUALS AT THE START OF SHIFT. ALL OTHER RESIDUAL CHECKS THROUGH THE NIGHT WERE MINIMAL. PT CONTINUES TO HAVE MEDEL TEMP PROBE IN PLACE. PT HAS BEEN AFEBRILE THROUGH THE NIGHT. PT HAD APPROX 1600ML OF URINE OUTPUT OVERNIGHT. URINE REMAINS DARK AND GREEN. PT HAD A BREIF PERIOD WHERE URINE WAS OBSERVED TO BE PINK/RED IN COLOR. THERE WAS NO APPARENT PULLING OF MEDEL PRIOR TO PINK COLOR BEING NOTED. URINE RETURNED TO PREVIOUS COLOR SHORTLY AFTER PINK/RED COLORATION WAS OBSERVED. PT REMAINS RESTRAINED IN BILATERAL SOFT WRIST RESTRAINTS AT THIS TIME. PT HR IS CURRENTLY MAINTAINING IN THE 40'S RANGE. BP IS STABLE AT THIS TIME IN THE 90-100 RANGE. WILL REPORT OFF TO [facility] DAY SHIFT NURSE.
--- NOTE | 2018-08-28 09:24 | NUR ---
AGITATION PT VERY RESTLESS AND AGITATED. BP INCREASING, RR INCREASING, O2 SATS DECREASING TO MID 80'S, PT COUGHING AND THRASHING IN BED. PT MED c 100MCG FENTANYL PUSH WITH NO EFFECT. INCREASED PROPOFOL FROM 50MCG/KG TO 60 WITH NO EFFECT. INCREASED FENTANYL DRIP FROM 50MCG/HR TO 75 WITH NO EFFECT. MED c 4MG IVP ATIVAN WITH NO EFFECT. PROPOFOL INCREASED TO 70MCG/KG. BEGINNING TO SETTLE AT THIS TIME.
--- NOTE | 2018-08-28 12:18 | NUR ---
DR. CECE ZHAO ROUNDED ON PT. PLAN TO ADD ZYPREXA TO REGIMEN AT BEDTIME AND Q4P. OTHERWISE CONTINUE PLAN OF CARE.
--- NOTE | 2018-08-28 15:30 | NUR ---
DR. ZHAO/HYPOTENSION PT BP TRENDING DOWN AFTER ADMIN OF SEDATIVES. PROPOFOL DECREASED FROM 60MCG/KG TO 50MCG. SBP INCREASED FROM HIGH 70'S SYSTOLIC TO 90'S WITH THIS. DR. ZHAO STATES TO TRY USING IM ZYPREXA FOR AGITATION AND NOT TO INCREASE PROPOFOL AGAIN IF ABLE.
--- NOTE | 2018-08-28 18:48 | NUR ---
SHIFT SUMMARY PT CONTINUES TO BE INTUBATED AND SEDATED. SEDATION AGAIN WAS THE BIGGEST OBSTALCE THIS SHIFT - PT REQUIRING HIGH DOSES OF PROPOFOL AND FENTANYL WELL INTERMITTENT ATIVAN. ZYPREXA ADDED THIS SHIFT. PT CURRENTLY RECEIVING FENT GTT AT 50MCG/HR, PROPOFOL AT 50MCG/KG/MIN. VENT SETTINGS INCREASED THIS SHIFT, CURRENTLY AC 18, TV 500, PEEP 8, FIO2 65%. OG CONTINUES WITH VHP TF AT GOAL OF 15ML/HR, MINIMAL RESIDUALS. MEDEL CONTINUES TO DRAIN YELLOW/GREEN URINE TO GRAVITY. BEATRICE SOFT WRIST RESTRAINTS REMAIN IN PLACE TO PROTECT LINES, TUBES. FAMILY MEMBERS AT BEDSIDE T/O SHIFT, UPDATED ON AND AGREEABLE WITH PLAN OF CARE. WILL CONTINUE TO MONITOR PT AND GIVE HANDOFF REPORT TO ONCOMING RN.
--- NOTE | 2018-08-29 01:21 | NUR ---
ASSUMING CARE AND PROGRESS NOTE. RECEIVED PT REPORT FROM LIZBETH NEWTON. PT REMAINS INTUBATED AT THIS TIME. PT VENT SETTINGS ARE AC 18, TV 500, PEEP 8, AND FIO2 65%. PT APPEARS TO BE MAINTAINING SPO2 IN THE 88-92 RANGE. PT IS HIGHLY AGITATED AT THE START OF SHIFT. PT IS RECEIVING PROPOFOL AT 50MCG/KG/MIN AND FENTANYL GTT AT 50MCG/HR. PT IS THRASHING IN BED AND IS HYPERTENSIVE IN THE 150-160'S RANGE. PT PROVIDED 4MG ATIVAN WITH LITTLE NOTED EFFECT. PT REMAIND AGITATED AND HYPERTENSIVE. PT PROVIDED 100MCG OF FENTANYL WITH SOME EFFECT. AT APPROX 2120 PT BEGAN TO BECOME AGITATED AGAIN WITH MARKEDLY INCREASED BP IN THE 140'S SYSTOLIC. PT WAS PROVEDED ZYPREXA AND FENTANYL WITH NOTED EFFECT. AT APPROX 2200 WITH PRECUSSION PT BEGAN TO BECOME HYPOTENSIVE WITH BP NOTED TO BE IN THE 60'S TO 70'S SYSTOLIC. FENTANYL GTT AND PROPOFOL DECREASED. PROPOFOL DECREASED AND PLACED ON STANDBY DUE TO HYPOTENSION. AFTER TITRATION DOWN OF PROPOFOL AND FENTANYL PT QUICKLY WOKE UP AND BECAME HIGHLY AGITATED ONCE MORE WITH BP IN THE 150'S. PT APPEARS TO BE EITHER HIGHLY AGITATED AND HYPERTENSIVE OR SEDATED AND HYPOTENSIVE. WILL TITRATE GTT'S TO AGITATION AND BP. IN ADDITION TO PROPOFOL AND FENTANYL PT IS RECEIVING NS AT TKO. PT HAS MEDEL TEMP PROBE IN PLACE. PT URINE IS GREEN AND DARK AT THIS TIME. PT BOWEL TONES ARE HYPOACTIVE BUT APPEAR TO BE IMPROVING FROM PREVIOUS SHIFTS OF CARE. PT IS RECEIVING TUBE FEEDING OF VITAL HIGH PROTIEN AT GOAL RATE OF 15ML/HR. PT HAS HAD MINIMAL RESIDUALS THUS FAR THIS SHIFT. REFER TO VITAL SIGN FLOW SHEET AND GTT FLOW SHEET FOR DETAILS OF VITALS AND TITRATION TIMES. PT HAS ORDER FOR Q2 CPT, CPT UNAVAILABLE ON BED AT THIS TIME PT RECEIVING Q6 PRECUSSION BY RT. ASSUMED CARE OF PT AT 1900, TIME OF SHIFT REPORT. WILL CONTINUE TO MONITOR PT.
[2018-08-29 03:47] LABS: BASOPHILS ABSOLUTE AUTO 0.04 K/mm3 (0.00-0.23); BASOPHILS PERCENT AUTO 0 % (0-2); EOSINOPHILS ABSOLUTE AUTO 0.09 K/mm3 (0.00-0.68); EOSINOPHILS PERCENT AUTO 1 % (0-6); Hematocrit 41.4 % (37.0-53.0); Hemoglobin 13.1 g/dL (13.5-17.5); IMMATURE GRAN ABSOLUTE AUTO 0.47 K/mm3 (0.00-0.10); IMMATURE GRAN PERCENT AUTO 4 % (0-1); LYMPHOCYTES ABSOLUTE AUTO 2.11 K/mm3 (0.84-5.20); LYMPHOCYTES PERCENT AUTO 17 % (21-46); MONOCYTES ABSOLUTE AUTO 1.09 K/mm3 (0.16-1.47); MONOCYTES PERCENT AUTO 9 % (4-13); Mean Corpuscular HGB 27.1 pg (26.0-34.0); Mean Corpuscular HGB Conc 31.6 g/dL (31.5-36.5); Mean Corpuscular Volume 86 fL (80-100); Mean Platelet Volume 10.2 fL (9.1-12.4); NEUTROPHILS ABSOLUTE AUTO 8.32 K/mm3 (1.96-9.15); NEUTROPHILS PERCENT AUTO 69 % (41-73); Platelet Count 252 K/mm3 (150-400); RDW Coefficient Variation 15.2 % (11.7-14.2); RDW Standard Deviation 47.8 fL (35.1-46.3); Red Blood Cell Count 4.83 M/mm3 (4.30-5.90); White Blood Cell Count 12.12 K/mm3 (4.00-11.30)
[2018-08-29 04:04] LABS: Albumin, Blood 3.1 g/dL (3.4-5.0); Anion Gap 7 mmol/L (6-16); Blood Urea Nitrogen 31 mg/dL (8-24); Bun/Creatinine Ratio 37.6 (12.0-20.0); CO2, Blood 31 mmol/L (21-32); Calcium, Blood 8.3 mg/dL (8.5-10.1); Chloride, Blood 101 mmol/L (98-108); Creatinine, Blood 0.83 mg/dL (0.60-1.20); Glomerular Filtration Rate >60 (60-); Glucose, Blood 103 mg/dL (70-99); Magnesium, Blood 2.6 mg/dL (1.6-2.4); Phosphorus, Blood 3.3 mg/dL (2.5-4.9); Potassium, Blood 3.3 mmol/L (3.5-5.5); Sodium, Blood 139 mmol/L (136-145)
--- NOTE | 2018-08-29 06:32 | NUR ---
SHIFT SUMAMRY NOTE. PT REMAINS INTUBATED. PT VENT SETTINGS REMAIN UNCHANGED OVERNIGHT AND ARE AC 18, TV 500, FIO2 65% AND PEEP 8. PT SPO2 HAS BEEN MAINTAINING IN THE 88-93% RANGE. PT BP HAS BEEN HIGHLY LABILE OVERNIGHT. PT HAS EITHER BEEN HIGHLY AGITATED WITH HIGHLY ELEVATED BP, OR SEDATED WITH HYPOTENSION. PT FENTANYL AND PROPOFOL GTT HAVE BEEN TITRATED THROUGH THE NIGHT FOR MANAGEMENT OF BP AND AGITATION. REFER TO VITAL SIGN FLOW SHEET AND TITRATION FLOW SHEET FOR DETAILS AND TIMES OF TITRATIONS AND BLOOD PRESSURES. PT CONTINUES TO TO RECEIVE TUBE FEEDING AT GOAL RATE OF 15ML/HR. PT HAS HAD MINIMAL RESIDUALS OVERNIGHT. CPT FUNCTION ON BED HAS BEEN UNAVAILABLE THROUGHOUT THE NIGHT. PRECUSSION PERFORMED BY RT THROUGH NIGHT. PT HAS REMAINED RESTRAINED IN SOFT BILATERAL WRIST RESTRAINTS THROUGH THE NIGHT. PT TEMPERATURE HAS INCREASED THROUGH THE NIGHT AND IS NOW AT APPROX 99.9. FAN APPLIED AND SHEETS LOWERED TO HELP DECREASE TEMPERATURE. WILL REPORT OFF TO ONCOMING DAY SHIFT NURSE
--- NOTE | 2018-08-29 08:00 | NUR ---
ASSUMED CARE OF PT. PT SEDATED WITH PROPOFOL AT 45MCG/KG/MIN, ON FENTANYL DRIP @ 45MCG/HR. PT DOES NOT FOLLOW COMMANDS.
--- NOTE | 2018-08-29 08:45 | NUR ---
ADVANCED NG TUBE [address] TONY.
--- NOTE | 2018-08-29 10:46 | NUR ---
SEEN BY DR. TONY. UPDATED HIM OF PT'S STATUS. PROPOFOL @ 15MCG/KG/MIN, FENTANYL DRIP @ 15MCG/HR. ORDERED BY DR. TONY. PT WAS PLACED ON SBT @ [address] TONY WITH SETTINGS 10/8 FIO2 65%
--- NOTE | 2018-08-29 11:17 | NUR ---
PT IS STARTING TO WAKE SLIGHTLY. STARTING TO BE SLIGHTLY RESTLESS. PT IS PULLING GOOD VOLUMES AND RR BELOW 30. PROPOFOL @ 10MCG/KG/MIN CURRENTLY. FAMILY AT BEDSIDE.
--- NOTE | 2018-08-29 11:26 | NUR ---
DR. TONY WAS NOTIFIED REGARDING PT'S SBT PROGRESS. PT IS WAKING UP SLIGHTLY, OPENS EYES TO VOICE FOLLOW TO THE DIRECTION WHERE THE VOICE IS BUT NOT ABLE TO FOCUS. SLIGHTLY RESTLESS. NOT FOLLOWING COMMANDS. FAMILY AT BEDSIDE. PT'S RR WHILE ON SBT 13-20. TV FROM 270-1800. PROPOFOL OFF AT THIS TIME. STILL ON FENTANYL DRIP @ 15MCG/KG/MIN. DR. TONY IS ALSO AWARE OF PT BEING SWEATY.
--- NOTE | 2018-08-29 14:00 | NUR ---
1352-PT STARTED TO HAVE A FEW SUSTAINED RUNS OF SVT THEN GOES BACK TO NSR. PT IS STILL TOLERATING SBT. STILL SOMEWHAT RESTLESS. DR. TONY WAS NOTIFIED ABOUT THIS. SHOWED HIM THE STRIPS, NO ORDERS RECEIVED.
--- NOTE | 2018-08-29 16:00 | NUR ---
1350-PT WAS PLACED BACK ON AC MODE. PT IS HAVING MORE AND MORE SVT. MORE DIAPHORETIC. BP ELEVATED. DR. TONY WAS NOTIFIED, HE STATED TO PLACE PT BACK ON AC. RESTARTED PROPOFOL @ 50MCG/KG/MIN. 1415-PT HAD A SMALL BOWEL MOVEMENT. PERICARE DONE. 1500- DR. TONY CAME BY TO TALK TO PT'S AND FAMILY. 1600-PT IS CURRENTLY ON 48MCG/KG/MIN OF PROPOFOL, FENTANYL @ 15MCG/HR.
--- NOTE | 2018-08-29 17:39 | NUR ---
SHIFT SUMMARY: PT WAS PLACED ON PRESSURE SUPPORT TODAY FOR 2 HOURS. PT WAS PLACED BACK DUE TO CONTINUOS RUNS OF SVT. WHILE ON PS PT WAS ON FENTANYL DRIP @ 15MCG/HR AND PROPOFOL WAS TITRATED DOWN TO OFF. PT OPENS HIS EYES TO VOICE WHILE ON SBT TRIAL BUT IS NOT TRACKING, NOT FOLLOWING COMMANDS. PT IS CURRENTLY STILL ON PROPOFOL DRIP @ 50MCG/KG/MIN AND FENTANYL DRIP @ 15MCG/HR. FAMILY HAS BEEN IN AND OUT OF THE ROOM.
[2018-08-29 19:10] LABS: Anion Gap 7 mmol/L (6-16); Blood Urea Nitrogen 26 mg/dL (8-24); Bun/Creatinine Ratio 31.7 (12.0-20.0); CO2, Blood 29 mmol/L (21-32); Calcium, Blood 9.1 mg/dL (8.5-10.1); Chloride, Blood 103 mmol/L (98-108); Creatinine, Blood 0.82 mg/dL (0.60-1.20); Glomerular Filtration Rate >60 (60-); Glucose, Blood 123 mg/dL (70-99); Magnesium, Blood 2.4 mg/dL (1.6-2.4); Potassium, Blood 3.3 mmol/L (3.5-5.5); Sodium, Blood 139 mmol/L (136-145)
--- NOTE | 2018-08-29 21:26 | NUR ---
ASSUMED CARE PT IS INTUBATED AND REMAINS ON VENT AC 18, VT 500, 8 PEEP, AND 70% FIO2. PT CONTINUES TO SHOW SIGNS OF RESTLESSNESS WITH NONPURPOSEUL MOVEMENT. PROPOFOL IS RUNNING AT 50 MCG/KG/MIN.
[2018-08-30 03:29] LABS: BASOPHILS ABSOLUTE AUTO 0.03 K/mm3 (0.00-0.23); BASOPHILS PERCENT AUTO 0 % (0-2); EOSINOPHILS ABSOLUTE AUTO 0.21 K/mm3 (0.00-0.68); EOSINOPHILS PERCENT AUTO 2 % (0-6); Hematocrit 39.2 % (37.0-53.0); Hemoglobin 12.4 g/dL (13.5-17.5); IMMATURE GRAN ABSOLUTE AUTO 0.31 K/mm3 (0.00-0.10); IMMATURE GRAN PERCENT AUTO 3 % (0-1); LYMPHOCYTES ABSOLUTE AUTO 2.36 K/mm3 (0.84-5.20); LYMPHOCYTES PERCENT AUTO 19 % (21-46); MONOCYTES ABSOLUTE AUTO 1.04 K/mm3 (0.16-1.47); MONOCYTES PERCENT AUTO 9 % (4-13); Mean Corpuscular HGB 27.5 pg (26.0-34.0); Mean Corpuscular HGB Conc 31.6 g/dL (31.5-36.5); Mean Corpuscular Volume 87 fL (80-100); Mean Platelet Volume 10.6 fL (9.1-12.4); NEUTROPHILS ABSOLUTE AUTO 8.25 K/mm3 (1.96-9.15); NEUTROPHILS PERCENT AUTO 68 % (41-73); Platelet Count 273 K/mm3 (150-400); RDW Coefficient Variation 15.3 % (11.7-14.2); RDW Standard Deviation 48.2 fL (35.1-46.3); Red Blood Cell Count 4.51 M/mm3 (4.30-5.90)
[2018-08-30 03:52] LABS: Albumin, Blood 3.1 g/dL (3.4-5.0); Anion Gap 7 mmol/L (6-16); Blood Urea Nitrogen 26 mg/dL (8-24); Bun/Creatinine Ratio 34.8 (12.0-20.0); CO2, Blood 29 mmol/L (21-32); Calcium, Blood 8.4 mg/dL (8.5-10.1); Chloride, Blood 104 mmol/L (98-108); Creatinine, Blood 0.75 mg/dL (0.60-1.20); Glomerular Filtration Rate >60 (60-); Glucose, Blood 112 mg/dL (70-99); Phosphorus, Blood 3.3 mg/dL (2.5-4.9); Sodium, Blood 140 mmol/L (136-145)
--- NOTE | 2018-08-30 04:56 | NUR ---
SBT SBT UNDERWAY. FENTANYL REMAINS AT 15MCG/HR AND PROPOFOL TITRATED DOWN TO 25MCG/KG/HR. PT DOES NOT FOLLOW COMMANDS OR OPEN EYES TO VOICE IS LESS RESTLESS THAN PREVIOUS SBT'S COMPLETED. RR <30, VT'S 300-500 AND O2 SATS >90%.
--- NOTE | 2018-08-30 05:30 | NUR ---
SEDATION ALL SEDATION OFF, CURRENTLY PT DOES NOT RESPOND TO VOICE, NO SPONTANEOUS MOVEMENT, NO GAG OR CORNEAL REFLEX NOTED.
--- NOTE | 2018-08-30 05:42 | NUR ---
SHIFT SUMMARY PT REMAINS INTUBATED ON VENT PS 10/8 PEEP 8 FIO2 55% AFTER TOLERATING SBT WELL. PT HAS BEEN RESTLESS OFF AND ON THROUGHOUT NIGHT AND IS ON PROPOFOL AT 40MCG/KG/MIN AND HAS RECIEVED 4MG ATIVAN AND 5MG ZYPREXA OVERNIGHT, WHICH SEEMED TO BE EFFECTIVE. RESIUALS WERE LESS THAN 20ML CHECKED AT 0530. PT REMAINS UNRESPONSIVE, MOVING NONPURPOSEFULLY, AND SPONTANEOUS EYE OPENING HAS CEASED AT THIS TIME.
--- NOTE | 2018-08-30 05:46 | NUR ---
FINAL DISCHANGE STARTED CALL INITIATED, SPOKE WITH COORDINATOR JOHN AND REVIEWED CHART. PER JOHN, SOMEONE WILL BE ENROUTE TO EVALUATE PT IN AM.
--- NOTE | 2018-08-30 09:43 | NUR ---
CARE ASSUMED CARE AND REPORT ASSUMED FROM WILL NEWTON. PT INTUBATED ON PS 10, PEEP 8, FIUO2 55%. LUNG SOUNDS CLEAR. PROPOFOL GTT AT 40 MCG/KG/MIN. FENTANYL GTT INFUSING AT 15 MCG/HR. PT STILL AGITATED, PULLING AGAINST RESTRAINTS AND MOVING EXTREMITIES CONSTANTLY IN BED. BUE RESTRAINED. FAMILY BEDSIDE. AFEBRILE AT THIS TIME. TOLERATING TF AT 15 ML/HR. PT HAD LARGE, GREEN RUNNY BOWEL MOVEMENT AND WAS CLEANED AND TURNED. MEDEL CATH HAS HAD SOME BLOODY OUTPUT LASTING FEW MINUTES AND NOW TUBING HAS CLEAR, YELLOW URINE. POTASSIUM REPLACEMENT INFUSING. NSR, HR 80S. BP STABLE. WILL CONTINUE TO MONITOR.
--- NOTE | 2018-08-30 09:52 | NUR ---
SEDATION OFF 909 - PROPOFOL GTT AND FENTANYL GTT TURNED OFF AT THIS TIME. PT REMAINS IN BUE RESTRAINTS. HE IS AGITATED, WIGGLING NONSTOP, AND PULLING AGAINT RESTRAINTS. WILL MONITOR CLOSELY.
--- NOTE | 2018-08-30 11:02 | NUR ---
SEDATION ON PROPOFOL GTT RESTARTED AT 1050. PT WAS AGITATED, PULLING ON RESTRAINTS, FLAILING LEGS AROUND AND HOOKING THEM IN MEDEL CATHETER. BUE REMAIN RESTRAINED. PROPOFOL GTT INFUSING AT 40 MCG/KG/MIN. RECTAL TUBE INSERTED AND PT CLEANED AND TURNED. WILL CONTINUE TO MONITOR.
--- NOTE | 2018-08-30 11:53 | NUR ---
REASSESSMENT PT REMAINS INTUBATED WITH SEDATION BACK ON AT 40 MCG/KG/MIN. SEDATION VACATION LASTED 1.5 HOURS. PT HAD APPROX 10 SECOND RUN OF VTACH; EKG STRIP SHOWN TO MD TONY. VERBAL ORDER TO CHECK POTASSIUM AND MAGNESIUM LEVEL. NO S/S PAIN AT THIS TIME. WILL REPOSITION AND WILL CONTINUE TO MONITOR.
[2018-08-30 13:39] LABS: Magnesium, Blood 2.3 mg/dL (1.6-2.4); Potassium, Blood 3.4 mmol/L (3.5-5.5)
--- NOTE | 2018-08-30 16:56 | NUR ---
REASSESSMENT PT TAKEN DOWN TO CT SCAN FOR HEAD SCAN. TOLERATED TRIP WELL. PT NOW SETTLED BACK IN ROOM. REMAINS IN NSR AND BP STABLE. HR 70-80S. NO S/S PAIN AT THIS TIME. PROPOFL GTT INFUSING AT 40 MCG/KG/MIN. POTASSIUM REPLACEMENT INFUSING PER MD. RECTAL TUBE SECURED AND MEDEL CATH SECURED. HOB ELEVATED. PT APPEARS COMFORTABLE. TOLERATING TF AT 25 ML/HR WITH 20 ML RESIDUAL. WILL CONTINUE TO MONTIOR.
--- NOTE | 2018-08-30 17:48 | NUR ---
Initial Visit: Consult received for symptom management Pt is currently intubated, sedated. An attempt to wean earlier today was not successful. They were unable to get pt off the vent because he had become agitated to the point that the sedation had to be resumed. He appears comfortable during my visit. Family is at bedside; and her sister. They are concerned about him, and puzzled as to why he is not getting better. "It's the not knowing that is the problem," per family. Reviewed plan of care with them. They are coping okay, but they are very worried and anxious for him. Reviewed with nurse Terri. She reports that the doctor just ordered a head CT. Will follow up with family when more information is collected, so that a full presentation of the pt's current illness can be discussed and decisions can be made.
--- NOTE | 2018-08-30 18:09 | NUR ---
SHIFT SUMMARY PT INTUBATED AND SEDATED MOST OF SHIFT EXCEPT DURING 1.5 HOURS OF SEDATION VACATION. VSS ENTIRE SHIFT. FEW INTERMITTENT EPISODES OF VTACH; STRIPS SHOWN TO MD TONY. PT HAS BEEN ON PS 10, PEEP 8 ENTIRE SHIFT WITH DECREASE IN FIO2. REMAINED IN BUE ENTIRE SHIFT. FAMILY IN/OUT OF ROOM DURING SHIFT. TF INCREASED TO 25 ML/HR, GOAL RATE 35 ML. PT HAS HAD LOW RESIDUALS. POTASSIUM REPLACED IN AM, RECHECKED AT 1230 AND REMAINED LOW SO ADDITIONAL POTASSIUM INFUSION ADMINISTERED. PT HAD CONSTANT LIQUID STOOL THIS AM. RECTAL TUBE PLACED AT 1100. PT TAKEN TO CT SCAN THIS AFTERNOON AND TOLERATED WELL. FETANYL GTT DISCONTINUED THIS AM AND IVP GIVEN PRN. PROPOFOL GTT REMAINS AT 40 MCG/KG/MIN. WILL GIVE BEDSIDE, HANDOFF REPORT TO NEGIN NEWTON.
--- NOTE | 2018-08-30 19:20 | NUR ---
ASSUME CARE: REPORT RECIEVED FROM PANTERA OFF GOING RN. REMAINS INTUBATED,SEDATED AND RESTRAINED. CONTINUES TO PULL AND TUG AT RESTRAINTS OPENS EYES HOWEVER DOES NOT TRACK OR FOLLOW REQUESTS. VENT SETTINGS PS 10, PEEP 8, FIO2 40%. LUNG SOUNDS COARSE THROUGHOUT. SPO2 94-96%. 15ML TUBE FEED REFED WITH ORAL CARE. ABDOMEN SOFT WITH BOWEL SOUNDS FOUR QUADS. MEDEL PATENT DRAINING LUCIA PINK TINGED URINE. RECTAL TUBE PATENT DRAININ SMALL AMT OF DK BROWN/BLACK LIQUID STOOL. REPOSITIONED TO BACK. EXTREMITIES ELEVATED ON PILLOWS SECONDARY TO GENERALIZED GENERAL EDEMA. SON AT BEDSIDE ATTENTIVE TO NEEDS CARES. UPDATE GIVEN. CONTINUE TO MONITOR AND REPORT CHANGE IN PATIENT CONDITION. SKIN WARM/DRY /INTACT
--- NOTE | 2018-08-31 00:18 | NUR ---
COMPLETE BED BATH, LINEN CHANGE, GENTLE ROM, BACK RUB, AND PERSONAL CARES WITH REPOSITIONING. COMPLETED. CONTINUE TO MONITOR AND REPORT CHANGE IN PATIENT CONDITION.
[2018-08-31 03:24] LABS: BASOPHILS ABSOLUTE AUTO 0.07 K/mm3 (0.00-0.23); BASOPHILS PERCENT AUTO 0 % (0-2); EOSINOPHILS ABSOLUTE AUTO 0.19 K/mm3 (0.00-0.68); EOSINOPHILS PERCENT AUTO 1 % (0-6); Hematocrit 43.5 % (37.0-53.0); Hemoglobin 13.9 g/dL (13.5-17.5); IMMATURE GRAN ABSOLUTE AUTO 0.38 K/mm3 (0.00-0.10); IMMATURE GRAN PERCENT AUTO 2 % (0-1); LYMPHOCYTES ABSOLUTE AUTO 2.06 K/mm3 (0.84-5.20); LYMPHOCYTES PERCENT AUTO 13 % (21-46); MONOCYTES ABSOLUTE AUTO 1.52 K/mm3 (0.16-1.47); MONOCYTES PERCENT AUTO 9 % (4-13); Mean Corpuscular HGB 27.3 pg (26.0-34.0); Mean Corpuscular Volume 86 fL (80-100); Mean Platelet Volume 10.6 fL (9.1-12.4); NEUTROPHILS ABSOLUTE AUTO 12.28 K/mm3 (1.96-9.15); NEUTROPHILS PERCENT AUTO 74 % (41-73); Platelet Count 271 K/mm3 (150-400); RDW Coefficient Variation 15.4 % (11.7-14.2); RDW Standard Deviation 47.1 fL (35.1-46.3); Red Blood Cell Count 5.09 M/mm3 (4.30-5.90)
[2018-08-31 03:45] LABS: Alanine Aminotransfer (ALT/SGP 119 U/L (12-78); Albumin, Blood 3.2 g/dL (3.4-5.0); Albumin/Globulin Ratio 0.9 (0.8-1.8); Alk Phos 57 U/L (50-136); Anion Gap 8 mmol/L (6-16); Aspartate Aminotrans (AST/SGOT 40 U/L (12-37); Bilirubin, Total 0.7 mg/dL (0.1-1.0); Blood Urea Nitrogen 20 mg/dL (8-24); Bun/Creatinine Ratio 27.7 (12.0-20.0); CO2, Blood 27 mmol/L (21-32); Calcium, Blood 8.9 mg/dL (8.5-10.1); Chloride, Blood 105 mmol/L (98-108); Creatinine, Blood 0.72 mg/dL (0.60-1.20); Globulin, Blood 3.5 g/dL (2.2-4.0); Glomerular Filtration Rate >60 (60-); Glucose, Blood 137 mg/dL (70-99); Magnesium, Blood 2.3 mg/dL (1.6-2.4); Potassium, Blood 3.7 mmol/L (3.5-5.5); Sodium, Blood 140 mmol/L (136-145); Total Protein, Blood 6.7 g/dL (6.4-8.2)
[2018-08-31 05:05] LABS: PO2 Arterial 72.5 mmHg (80-100)
--- NOTE | 2018-08-31 06:18 | NUR ---
; REMAINS INTUBATED,SEDATED AND RESTRAINED. MONITOR INTACT SHOWING SINUS RHYTHM. HEART RATE 80'S.LUNG SOUNDS COARSE/CLEAR SX MOD AMT CLEAR WHITE SECRETIONSPER ETT. AND CLEAR THIS SECRETIONS ORALLY. VENT SETTINGS ARE PRESSURE SUPPORT 10 PEEP 8 AND FIO2 35%. RESPIRATIONS 13-20. SPO2 93-96% ABDOMEN SOFT WITH BOWEL SOUNDS FOUR QUADS. RECTAL TUBE INTACT PATENT WITH DARK BROWN LIQUID STOOL AND MEDEL PATENT DRAINING DK LUCIA URINE. REMIANS IN SOFT WRIST RESTRAINTS TO PREVENT INADVERTENT REMVAL OF LINES AND TUBES SKIN W/D/I. CONTINUE TO MONITOR AND REPORT CHANGE IN PATIENT CONDITION. FAMILY AT BEDSIDE ATTENTIVE TO NEEDS CARES
--- NOTE | 2018-08-31 09:19 | NUR ---
CARE ASSUMED CARE AND REPORT ASSUMED FROM JAIME NEWTON. PT INTUBATED AND SEDATED. VENT PS 10, PEEP 8, FIO2 35%. LUNG SOUNDS CLEAR. PROPOFOL GTT INFUSING AT 40 MCG/KG/MIN; STOPPED AT 0745 FOR SEDATION VACATION. BUE RESTRAINED. PT STILL MOVING UPPER EXTREMITIES AGAINST RESTRAINTS AND MOVING LEGS AROUND. RECTAL TUBE REMAINS SECURED AND PATENT ALONG WITH MEDEL CATHETER. TOLERATING TF AT GOAL RATE 35 ML/HR WITH MINIMAL RESIDUALS. SON AT BEDSIDE. NO SIGNS OF PAIN AT THIS TIME. HOB ELEVATED. WILL CONTINUE TO MONITOR. WILL ASSESS NEURO STATUS WHEN SEDATION IS FULLY OFF.
--- NOTE | 2018-08-31 09:22 | NUR ---
SEDATION OFF SEDATION OFF AT 0745. SINCE THEN, PT HAS AWOKEN ENOUGH TO FOLLOW COMMANDS, TRACK WITH HIS EYES, AND NOD HEAD YES/NO. MD ZHAO BEDSIDE AND PS AND PEEP CHANGED TO 5/5. TF STOPPED. AWAITING. EXTUBATION.
--- NOTE | 2018-08-31 10:08 | NUR ---
EXTUBATION 1000 - PT EXTUBATED AT THIS TIME AND OGT REMOVED. VS. SPO2 91% ON 3L. FAMILY BEDSIDE. RESTRAINTS REMOVED. CALL LIGHT WITHIN REACH. EDUACTED ON NEED TO REDUCE TALKING. WILL CONTINUE TO MONITOR.
--- NOTE | 2018-08-31 12:01 | NUR ---
REASSESSMENT PT SAT IN RECLINER CHAIR FOR APPROX 30 MINUTES AND IS NOW BACK IN BED WITH ASSIST OF CEILING LIFT. FAMILY BEDSIDE. PT A/O X2, CALM AND COOPERATIVE. VSS. NSR, HR 80-90S. DENIES PAIN AT THIS TIME. SWALLOW EVAL ORDERED. WILL CONTINUE TO MONITOR.
--- NOTE | 2018-08-31 15:11 | NUR ---
Donny appears weak and groggy. That said, he also seems much improved from previous days. She speaks softly and slowly. He accepted prayer for continued healing. Spouse and family friend at bedside. They report to be feeling hopeful Donny' recovery will continue. Prayer and spiritual support appreciated. I will remain available.
--- NOTE | 2018-08-31 18:25 | NUR ---
SHIFT SUMMARY PT EXTUBATED AT 1000 TODAY. SHORTLY AFTER, PT WAS LIFTED INTO RECLINER CHAIR WITH CEILING LIFT. RECEIVED FULL BEDBATH AND LINEN CHANGE. DENIED PAIN ENTIRE SHIFT. VSS ENTIRE SHIFT. TMAX 100.0. FAMILY BEDSIDE THROUGHOUT SHIFT. PASSED SWALLOW EVAL AND IS NOW ON PUREED DIET WITH THICKENED LIQUIDS. COOPERATIVE IN CARE. WORKED WITH PHYSICAL THERAPY AND WAS ABLE TO STAND FOR SHORT TIME. VOIDED 1100 ML URINE. STOOL OUTPUT WAS 700 ML. WILL GIVE BEDSIDE, HANDOFF REPORT TO NOC RN.
--- NOTE | 2018-08-31 21:31 | NUR ---
ASSUMING CARE RECEVIED PT REPORT FROM AMAN MOTT. PT WAS EXTUBATED TODAY PER REPORT. PT IS ON 3L O2 VIA NC WITH SPO2 IN THE MID TO HIGH 90'S. PT IS DISORIENTED TO DATE, BUT IS ORIENTED TO PLACE, SITUATION, AND FAMILY. PT REMAINS WEAK AT THIS TIME. PT DENIES ANY PAIN AT THIS TIME. PT IS SALINE LOCKED AT THIS TIME. PT IS ON ASPIRATION PRECAUTIONS AND IS TO RECEIVE NECTAR THICK LIQUIDS WITHOUT STRAW AND PILLS CRUSHED IN APPLE SAUCE. PT BOWEL TONES ARE HYPERACTIVE. PER REPORT PT HAS BEEN HAVING DIARRHEA AND HAS A RECTAL TUBE IN PLACE. PT HAS MINIMAL DRAINAGE IN BAG AT THIS TIME. PT HAS MEDEL TEMP PROBE IN PLACE, CURRENTLY PATENT AND DRAINING TO GRAVITY. PT HR IS IN THE 80'S RANGE AT THIS TIME. BP IS STABLE AT THIS TIME IN THE 130-140'S. ASSUMING CARE OF PT AT THE TIME OF SHIFT REPORT. WILL CONTINUE TO MONITOR PT.
--- NOTE | 2018-09-01 05:56 | NUR ---
SHIFT PRINCESS NOTE PT HAS SLEPT OFF AND ON THROUGH THE NIGHT. PT HAS BEEN ABLE TO ANSWER QUESTIONS APPROPRIATLEY THROUGH THE NIGHT, THOUGH PT REMAINS SLOW TO RESPOND AND SPEECH IS VERY QUIET. PT WAS ABLE TO GET UP AND STAND WITH ASSISTANCE FROM THIS RN AND PT'S SON. PT TOLERATED STANDING WITH WALKER WELL. PT IS AT THIS TIME SITTING IN BED WITH BED IN CHAIR POSITION. PT CONTINUES TO HAVE MEDEL TEMP PROBE IN PLACE, CURRENTLY DRAINING TO GRAVITY. PT URINE IS DARK AND TEA COLORED AT THIS TIME. PT HAS RECTAL TUBE IN PLACE. PT'S RECTAL TUBE HAS HAD MINIMAL DRAINAGE OVERNIGHT. DRAINAGE OBSERVED IS VERY DARK AND LIQUIDY AT THIS TIME. PT HAS BEEN PROVIDED THICKEND LIQUIDS WITH A SPOON OVERNIGHT FOR PO FLUID INTAKE. PT HAS BEEN SALINE LOCKED OVERNIGHT WITH THE EXCEPTION OF IV ANTIBIOTIC INFUSION. PT VITALS HAVE REMAINED STABLE THROUGHOUT THE NIGHT. WILL REPORT OFF TO ONCOMING DAY SHIFT NURSE.
--- NOTE | 2018-09-01 10:00 | NUR ---
DR. DARVIN BOSTON ROUNDED ON PT. PLAN FOR PT TO TRANSFER TO [facility], CT MEDEL AND RECTAL TUBE. CONTINUE TO HAVE PT/OT WORK WITH PT, ENCOURAGE ACTIVITY TOLERATED. PT AND FAMILY UPDATED ON PLAN OF CARE.
--- NOTE | 2018-09-01 12:06 | NUR ---
PT/OT/ST PT/OT/ST ALL WORKED WITH PT THIS AM. PT MUCH IMPROVED SINCE YESTERDAY IN TERMS OF ACTIVITY TOLERANCE. S.T. ADVANCED DIET TO REGULAR CONSISTENCIES AND TEXTURES. PT UP TO CHAIR WITH P.T. AND THEN AGAIN WITH O.T. CURRENTLY UP IN CHAIR FOR LUNCH, FEEDING SELF WITH MIN ASSIST FROM SON AT BEDSIDE.
--- NOTE | 2018-09-01 13:02 | NUR ---
Met in bed and a family member in the room on visit ,his therapist in the room also attending to the needs of the pt, . [id number] pt. offered some payers , spiritual support and prayers for the pt.
--- NOTE | 2018-09-01 15:13 | NUR ---
PT CONTINUES TO BE UP IN RECLINER. VISITING WITH FAMILY MEMBERS IN ROOM. VITAL SIGNS STABLE, SPO2 94% ON ROOM AIR. DENIES ANY PAIN, NAUSEA, DYSPNEA. DENIES ANY NEEDS AT THIS TIME. TOLERATING DIET WELL. USING CALL LIGHT FOR NEEDS.
--- NOTE | 2018-09-01 18:25 | NUR ---
TRANSFER REPORT GIVEN TO MED FLOOR RN TO ASSUME CARE OF PT. PT TRANSFERRED VIA BED TO ROOM 342.
--- NOTE | 2018-09-01 18:34 | NUR ---
HANDOFF REPORT RECEIVED HANDOFF REPORT FROM ICU NURSE LIZBETH. PT REACTED TO LISINOPRIL - ANGIOEDEMA. WAS INTUBATED IN ICU FOR A WEEK, EXTUBATED YESTERDAY. A&O X3 (DATE?). FULL CODE. ON 2 LPM O2. USES FWW W/GAIT BELT, 1 PERSON ASSIST. HAD A BM TODAY. LIVES AT HOME WITH . LUNGS ARE CLEAR. PT SWALLOWS WELL. PLAN IS FOR PT TO DISCHARGE TO A SNF TOMORROW. PT HAS BEEN ADVANCED TO A 2 GRAM LOW SODIUM DIET. PT IS STILL FEELING WEAK. PT HAS A HX OF CHF, HTN, HYPOTHYROID. PT TRANSFERED TO THE FLOOR WNL. WAS ORIENTED TO THE UNIT. FAMILY IS IN THE ROOM.
--- NOTE | 2018-09-02 03:22 | NUR ---
09/02/18 0315 BOTH PT AND SON SITTING AT BEDSIDE. PT AWAITING TO HAVE VITALS SIGNS DONE AND THEN VOID. VITALS STABLE. PT DENIES ANY DISCOMFORT OR S/S. O2 AT 2 LPM VIA N/C. PT PLANS TO GO BACK TO SLEEP AFTER VOIDING.
[2018-09-02 05:16] LABS: BASOPHILS ABSOLUTE AUTO 0.05 K/mm3 (0.00-0.23); BASOPHILS PERCENT AUTO 0 % (0-2); EOSINOPHILS ABSOLUTE AUTO 0.26 K/mm3 (0.00-0.68); EOSINOPHILS PERCENT AUTO 2 % (0-6); Hematocrit 44.4 % (37.0-53.0); Hemoglobin 14.1 g/dL (13.5-17.5); IMMATURE GRAN ABSOLUTE AUTO 0.35 K/mm3 (0.00-0.10); IMMATURE GRAN PERCENT AUTO 3 % (0-1); LYMPHOCYTES ABSOLUTE AUTO 1.65 K/mm3 (0.84-5.20); LYMPHOCYTES PERCENT AUTO 13 % (21-46); MONOCYTES ABSOLUTE AUTO 1.45 K/mm3 (0.16-1.47); MONOCYTES PERCENT AUTO 11 % (4-13); Mean Corpuscular HGB 27.2 pg (26.0-34.0); Mean Corpuscular HGB Conc 31.8 g/dL (31.5-36.5); Mean Corpuscular Volume 86 fL (80-100); Mean Platelet Volume 10.9 fL (9.1-12.4); NEUTROPHILS ABSOLUTE AUTO 9.36 K/mm3 (1.96-9.15); NEUTROPHILS PERCENT AUTO 71 % (41-73); Platelet Count 286 K/mm3 (150-400); RDW Coefficient Variation 16.3 % (11.7-14.2); RDW Standard Deviation 49.3 fL (35.1-46.3); Red Blood Cell Count 5.18 M/mm3 (4.30-5.90); White Blood Cell Count 13.12 K/mm3 (4.00-11.30)
[2018-09-02 05:37] LABS: Alanine Aminotransfer (ALT/SGP 79 U/L (12-78); Albumin, Blood 3.4 g/dL (3.4-5.0); Albumin/Globulin Ratio 0.9 (0.8-1.8); Alk Phos 57 U/L (50-136); Anion Gap 10 mmol/L (6-16); Aspartate Aminotrans (AST/SGOT 17 U/L (12-37); Bilirubin, Total 0.8 mg/dL (0.1-1.0); Blood Urea Nitrogen 27 mg/dL (8-24); Bun/Creatinine Ratio 34.7 (12.0-20.0); CO2, Blood 27 mmol/L (21-32); Calcium, Blood 9.2 mg/dL (8.5-10.1); Chloride, Blood 106 mmol/L (98-108); Creatinine, Blood 0.78 mg/dL (0.60-1.20); Globulin, Blood 3.6 g/dL (2.2-4.0); Glomerular Filtration Rate >60 (60-); Glucose, Blood 136 mg/dL (70-99); Sodium, Blood 143 mmol/L (136-145)
--- NOTE | 2018-09-02 11:45 | NUR ---
Pt. is doing much better , sitting up in his bed and talking with his grandson who is on visit encouraged pt and prayed for him
[2018-09-02] MEDS ORDERED: DOXA4 PO (13:37)
[2018-09-02] MEDS ORDERED: Hydrochloroth12.5 MG PO (13:37)
[2018-09-02] MEDS ORDERED: Micro-K10 MEQ PO (13:37)
--- NOTE | 2018-09-02 16:50 | NUR ---
PATIENT DISCHARGED: PATIENT DISCHARGED TO SNF ([facility]) THIS SHIFT. MEDICATION RECONCILIATION COMPLETED; MED LIST PROVIDED TO . PATIENT DEPARTED MEDICAL FLOOR VIA [facility] WITH WHEELCHAIR AT 1640. CALLED [facility] ([facility]) TO GIVE REPORT; NURSING STAFF UNAVAILABLE FOR REPORT. PATIENT DEPARTED [facility]IA [facility].
== END 2018-09-02 16:37 | DRG 207 ==
LOC: ER 22:48 → ICUW 22:49 → ICUE 22:49 → ER 22:49 → ICUE 22:49 → MEDS 22:49 → ICUW 08-23 01:34 → ICUE 08-23 01:34 → MEDS 09-01 18:10
PROVIDERS: Emergency Medicine; Internal Medicine; Internal Medicine Critical Care Medicine; Internal Medicine Pulmonary Disease; ADMIT Internal Medicine
PROC: 0BH17EZ Insertion of Endotracheal Airway into Trachea, Via Natural or Artificial Opening (ICD-10-PCS; principal; 2018-08-22)
PROC: 5A1955Z Respiratory Ventilation, Greater than 96 Consecutive Hours (ICD-10-PCS; 2018-08-22)
DX: J96.01 Acute respiratory failure with hypoxia (principal); J14 Pneumonia due to Hemophilus influenzae; J98.11 Atelectasis; I10 Essential (primary) hypertension; T46.4X5A Adverse effect of angiotensin-converting-enzyme inhibitors, initial encounter; E16.2 Hypoglycemia, unspecified; E87.6 Hypokalemia; E03.9 Hypothyroidism, unspecified; F32.9 Major depressive disorder, single episode, unspecified; F41.9 Anxiety disorder, unspecified; G89.4 Chronic pain syndrome; G62.9 Polyneuropathy, unspecified; N40.0 Benign prostatic hyperplasia without lower urinary tract symptoms; T78.3XXA Angioneurotic edema, initial encounter; R45.1 Restlessness and agitation; R73.9 Hyperglycemia, unspecified
CPT/HCPCS: 31500; 31720; 36415; 36600; 51702; 70450; 71045; 71260; 80048; 80053; 80069; 80202; 81001; 82330; 82803; 82947; 83735; 83880; 84100; 84132; 84484; 85025; 85027; 87070; 87077; 87086; 87185; 87205; 92526; 92610; 93005; 93010; 94002; 94003; 94667; 94668; 96374-59; 96375-59; 97110; 97116; 97162; 97166; 97530; 97535; 99291-25; C9113; J0330; J0692; J0696; J1200; J1650; J1815; J2060; J2250; J2930; J3010; J3370; J3480; J7030; J7050; J7120; Q9967

== ENCOUNTER 2019-12-29 10:48 | Emergency (ER) | payer OTHER, MEDICARE ==
[~2019-12-29] VITALS: Ht 177.8 cm; Wt 112.9 kg
[~2019-12-29 10:48] MED LIST changes: +ASPI81CH PO; +CALCIUM WITH V1 EACH PO; +DOXA4 PO; +FIBER LAXATIVE PO; +FOLI400 PO; +Ferrous Sulfat325 M2 PO; +Hydrochloroth12.5 MG PO; +Micro-K10 MEQ PO; +OMEG1CAP30; +Synthroid25 MCG PO; +THERA1 EACH PO; +VITAMIN C500 M1 PO; +ZESTORETIC 20-1 EAC1 PO
[2019-12-29] MEDS ORDERED: ASCO500 PO (11:03)
[2019-12-29] MEDS ORDERED: FURO20 PO (11:04)
[2019-12-29] MEDS ORDERED: TERA5 PO (11:04)
[2019-12-29 11:33] LABS: Hematocrit 41.3 % (37.0-53.0); Mean Corpuscular HGB 30.5 pg (26.0-34.0); Mean Corpuscular HGB Conc 33.9 g/dL (31.5-36.5); Mean Corpuscular Volume 90 fL (80-100); Mean Platelet Volume 10.6 fL (9.1-12.4); Platelet Count 198 K/mm3 (150-400); RDW Standard Deviation 46.6 fL (35.1-46.3); Red Blood Cell Count 4.59 M/mm3 (4.30-5.90); White Blood Cell Count 20.79 K/mm3 (4.00-11.30)
[2019-12-29 11:46] LABS: International Normalized Ratio 1.27; Prothrombin Time Results 13.4 Sec (9.7-11.5)
[2019-12-29 11:53] LABS: BAND PERCENT MAN 20 % (0-8); BASOPHILS PERCENT MAN 0 % (0-2); EOSINOPHILS PERCENT MAN 0 % (0-6); LYMPHOCYTES PERCENT MAN 2 % (21-46); MONOCYTES PERCENT MAN 10 % (4-13); SEG NEUTROPHILS PERCENT MAN 68 % (41-73); TOTAL CELLS COUNTED 100
[2019-12-29 11:54] LABS: Albumin, Blood 2.8 g/dL (3.4-5.0); Albumin/Globulin Ratio 0.8 (0.8-1.8); Bilirubin, Total 1.8 mg/dL (0.1-1.0); Bun/Creatinine Ratio 19.7 (12.0-20.0); Calcium, Blood 8.2 mg/dL (8.5-10.1); Creatinine, Blood 1.47 mg/dL (0.60-1.20); Globulin, Blood 3.7 g/dL (2.2-4.0); Potassium, Blood 3.1 mmol/L (3.5-5.5); Total Protein, Blood 6.5 g/dL (6.4-8.2)
[2019-12-29 13:51] LABS: Source, Urine Catheter
[2019-12-29 14:06] LABS: Bilirubin, Urine Neg (Neg); Blood, Urine 5+ (Neg); Glucose Qualitative, Urine Neg (Neg); Ketones, Urine Neg (Neg); Leukocyte Esterase, Urine Neg (Neg); Nitrite, Urine Neg (Neg); Protein, Urine 3+ (Neg); Specific Gravity, Urine 1.015 (1.003-1.022); Urobilinogen, Urine NORM (Normal)
[2019-12-29 14:12] LABS: Appearance, Urine Clear (Clear); Color, Urine Amber (P-Yellow)
[2019-12-29 14:14] LABS: White Blood Cells, Urine 0-2 /hpf (0-5)
[2019-12-29 14:15] LABS: Bacteria Few /hpf; Squamous Epithelial Cells Rare /hpf (Few)
[2019-12-29 14:16] LABS: Transitional Epithelial Cells Rare /hpf (0-Rare)
[2019-12-29 17:09] LABS: PO2 Arterial 71.1 mmHg (80-100); pH Blood Arterial 7.44 (7.35-7.45)
== END 2019-12-29 19:26 | disposition short-term general hospital (02) ==
LOC: ER 10:48
PROVIDERS: Physician Assistant
DX: A41.9 Sepsis, unspecified organism (principal); R65.20 Severe sepsis without septic shock; J96.01 Acute respiratory failure with hypoxia; N17.9 Acute kidney failure, unspecified; J18.9 Pneumonia, unspecified organism; E87.6 Hypokalemia; N49.2 Inflammatory disorders of scrotum; E27.8 Other specified disorders of adrenal gland; Z20.828 Contact with and (suspected) exposure to other viral communicable diseases; Z88.8 Allergy status to other drugs, medicaments and biological substances; Z79.899 Other long term (current) drug therapy; I10 Essential (primary) hypertension
CPT/HCPCS: 36415; 36600; 71045; 72192; 74177; 80053; 81001; 82803; 83605; 83735; 85025; 85610; 85730; 87040; 87077; 87086; 87147; 87186; 93005; 93010; 94640; 94660; 96365; 96367; 96375; 99285-25; J2060; J2543; J3370; J7120; Q9967; U0002

== ENCOUNTER 2021-07-25 05:48 | Observation (INO) | payer OTHER ==
[~2021-07-25] VITALS: Ht 177.8 cm; Wt 109.5 kg
[~2021-07-25 05:48] MED LIST changes: +ASCO500 PO
[2021-07-25] MEDS ORDERED: TAMS.4ER PO (06:32)
[2021-07-25] MEDS ORDERED: ROSU10TA PO (06:32)
[2021-07-25] MEDS ORDERED: OMEP20ER PO (06:33)
--- NOTE | 2021-07-25 08:55 | NUR ---
PATIENT IN RECOVERY ROOM RECLINER. A&O. LEFT PACER SITE WITH DRESSING D&I. NO HEMATOMA NO BLEEDING.
--- NOTE | 2021-07-25 09:00 | NUR ---
PATIENT TAKEN TO XRAY FOR POST CXR VIA WHEELCHAIR.AND RETURNED TO [facility] RECOVERY OOM VIA [facility] CHA[facility].
--- NOTE | 2021-07-25 11:50 | NUR ---
PATIENT AMBULATED TO REST ROOM WITH CANES. HAS BEEN REMINDED OF LEFT ARM RESTRICTIONS ONCE AGAIN. PATIENT RETURNED TO RECLINER. MONITOR EKG DEMONSTRATES AN INTERMITTENT LOSS OF RV CAPTURE. TESTING ON RV LEAD WITH JOHN POWERTRAIN CALIBRATION ENGINEER DONE. RV CAPTURE THRESHOLD NOW AT 5.25v AT 0.4ms. DR NDIAYE NOTIFIED. STAT CHEST XRAY ORDERED. RV AMPLITUDE PROGRAMMED TO 6V.
--- NOTE | 2021-07-25 12:13 | NUR ---
PATIENT RETURNED FROM STAT CXR.
--- NOTE | 2021-07-25 14:30 | NUR ---
RICARDO RUBALCAVA FROM [facility] HERE. TEST DONE ON LEAD. PATIENT WILL BE ADMITTED FOR OBSERVATION
--- NOTE | 2021-07-25 14:54 | NUR ---
CASEY FROM [facility] HERE TO REVIEW PACEMAKER INFORMATION. AWAITING BED FOR PATIENT.
--- NOTE | 2021-07-25 17:14 | NUR ---
1545 ARRIVED TO ROOM. LEFT ARM SLING IN PLACE, ICE PACK APPLIED TO PACEMAKER SIGHT. PT REPORYS MILD PAIN AND DENIES NEED FOR MEDICATION
--- NOTE | 2021-07-25 17:15 | NUR ---
5825 SPOKE WITH ELENITA MACIAS RN PCU REGARDING PATIENTS HEART RHYTHM. ELENITA CONTACTED DR NDIAYE REGARDING PATIENTS RHYTHM AND ORDERS RECEIVED
--- NOTE | 2021-07-25 18:21 | NUR ---
PT WITH LWFT SHOULDER DRESSING DRY AND INTACT. PT REPORTS MILD DISCOMFORT AND DENIES NEED FOR PAIN MEDS. LEFT SHOULDER SLING IN PLACE AND PT EDUCATED ON NOT RAISING LEFT ARM ABOVE SHOULDER. ICE BAG IN PLACE TO LEFT SHOULDER. RHYTHM SHOWS PACED RHYTHM
--- NOTE | 2021-07-25 21:15 | NUR ---
CALL PLACED TO DR NDIAYE (NO ANSWER) AND THEN THE ONCALL GOLF COURSE ARCHITECT, DR ENRIQUEZ AT APPROX 2014 REGARDING REPORT FROM LIFT MANAGER THAT PATIENT WAS HAVING ELONGATED QRS INTERVALS WELL MULTIPLE PVCS. AWAITING A CALL BACK.
--- NOTE | 2021-07-25 21:16 | NUR ---
RECIEVED A CALL BACK FROM DR ENRIQUEZ AT APPROX 2034 REGARDING ENLONGATED QRS INTERVALS WELL MULTIPLE PVCS. DR ENRIQUEZ ORDERED A 2 VIEW XRAY FOR TOMORROW AM AND TYLENOL Q6H FOR DISCOMFORT FROM HAVING PACER PLACED TODAY.
--- NOTE | 2021-07-26 03:02 | NUR ---
A/O X4. VSS. IND TO BATHROOM. TELE MONITOR WITH REPORTS OF ELONGATED QRS INTERVALS, PACED AND 83BPM. VOIDING WELL. NO REPORTS OF CHEST PAIN OR SOB. 2V XRAY ORDERED FOR THIS AM TO RECHECK PLACEMENT ORDERED BY DR. ENRIQUEZ. WILL CONTINUE TO MONITOR AND REPORT TO ONCOMING RN.
--- NOTE | 2021-07-26 12:10 | NUR ---
DR NDIAYE CALLED AND GAVE VERBAL ORDERS TO DC HOME
[2021-07-26] MEDS ORDERED: Acetaminophen650 M1 PO (13:30)
--- NOTE | 2021-07-26 14:00 | NUR ---
DISCHARGING DC'D TELE AND SENT UNIT BACK TO PCU. DC'D IV, CATHETER INTACT. REVIEWED DC INSTRUCTIONS W/PT; VERBALIZED UNDERSTANDING. PT LEAVING UNIT IN WC TO RIDE WAITING OUTSIDE W/POSSESSIONS AND DC PAPERWORK IN HAND.
== END 2021-07-26 14:00 | disposition home or self-care (01) ==
LOC: MHTC 05:48 → PCU 14:46 → SURS 15:34
PROVIDERS: ADMIT Internal Medicine Cardiovascular Disease
DX: I44.2 Atrioventricular block, complete (principal); I44.1 Atrioventricular block, second degree; I49.5 Sick sinus syndrome; E78.5 Hyperlipidemia, unspecified; I11.0 Hypertensive heart disease with heart failure; I50.9 Heart failure, unspecified; G47.33 Obstructive sleep apnea (adult) (pediatric); E66.01 Morbid (severe) obesity due to excess calories; Z68.35 Body mass index [BMI] 35.0-35.9, adult; Z87.891 Personal history of nicotine dependence; Z86.14 Personal history of Methicillin resistant Staphylococcus aureus infection; Z88.8 Allergy status to other drugs, medicaments and biological substances
CPT/HCPCS: 33208; 71046; 93005; 93010; 99152; 99153; A9270; C1785; C1894; C1898; J0690; J1580; J1644; J2250; J3010; J7030; J7040; Q9967

== ENCOUNTER 2024-06-06 16:05 | Inpatient (IN) | payer OTHER ==
[~2024-06-06] VITALS: Ht 175.3 cm; Wt 97.3 kg
[~2024-06-06 16:05] MED LIST changes: +Acetaminophen650 M1 PO; +OMEP20ER PO; +ROSU10TA PO; +TAMS.4ER PO
[2024-06-06] MEDS ORDERED: Albuterol 2.5 MG/3 ML VIAL INH SCH (17:10)
[2024-06-06 17:19] LABS: BASOPHILS ABSOLUTE AUTO 0.02 K/mm3 (0.00-0.23); BASOPHILS PERCENT AUTO 0 % (0-2); EOSINOPHILS ABSOLUTE AUTO 0.01 K/mm3 (0.00-0.68); EOSINOPHILS PERCENT AUTO 0 % (0-6); Hemoglobin 13.5 g/dL (13.5-17.5); IMMATURE GRAN ABSOLUTE AUTO 0.07 K/mm3 (0.00-0.10); IMMATURE GRAN PERCENT AUTO 0 % (0-1); LYMPHOCYTES ABSOLUTE AUTO 0.51 K/mm3 (0.84-5.20); LYMPHOCYTES PERCENT AUTO 3 % (21-46); MONOCYTES ABSOLUTE AUTO 1.13 K/mm3 (0.16-1.47); MONOCYTES PERCENT AUTO 7 % (4-13); Mean Corpuscular HGB 32.7 pg (26.0-34.0); Mean Corpuscular HGB Conc 32.9 g/dL (31.5-36.5); Mean Corpuscular Volume 99 fL (80-100); Mean Platelet Volume 11.7 fL (9.1-12.4); NEUTROPHILS ABSOLUTE AUTO 15.03 K/mm3 (1.96-9.15); NEUTROPHILS PERCENT AUTO 90 % (41-73); Platelet Count 143 K/mm3 (150-400); RDW Coefficient Variation 18.1 % (11.7-14.2); RDW Standard Deviation 63.8 fL (35.1-46.3); Red Blood Cell Count 4.13 M/mm3 (4.30-5.90); White Blood Cell Count 16.77 K/mm3 (4.00-11.30)
[2024-06-06 17:39] LABS: Albumin, Blood 2.9 g/dL (3.4-5.0); Albumin/Globulin Ratio 0.9 (0.8-1.8); Bun/Creatinine Ratio 28.5 (12.0-20.0); Creatinine, Blood 1.37 mg/dL (0.60-1.20); Globulin, Blood 3.2 g/dL (2.2-4.0); Potassium, Blood 3.8 mmol/L (3.5-5.5); Total Protein, Blood 6.1 g/dL (6.4-8.2)
[2024-06-06 17:45] LABS: Base Excess Venous 4.5 mmol/L; Bicarbonate Venous 27.2 mmol/L (24.0-30.0); PCO2 Venous 50.3 mmHg (38-42); pH Blood Venous 7.38 (7.34-7.37)
[2024-06-06] MEDS ORDERED: Azithromycin 500 MG in NS 250 ML IV ONE (18:00)
[2024-06-06] MEDS ORDERED: Furosemide 10 MG / ML 2ML Vial IV ONE ×2 (18:00→19:00)
[2024-06-06] MEDS ORDERED: CefTRIAXone Sodium 1,000 MG in NS 100 ML IV ONE (18:00)
[2024-06-06] MEDS ORDERED: Albuterol 2.5 MG/3 ML VIAL INH PRN (19:00)
[2024-06-06] MEDS ORDERED: Ondansetron HCl 2 MG / ML 2ML Vial IV PRN (19:00)
[2024-06-06] MEDS ORDERED: FLU VACC TS2024-25(6MOS UP)/PF 45 MCG/0.5 ML SYRINGE IM SCH (19:00)
[2024-06-06] MEDS ORDERED: Ipratropium/Albuterol SulF 2.5-0.5MG/3 ML Amp INH SCH (19:05)
[2024-06-06] MEDS ORDERED: Tiotropium Bromide 2.5 MCG/ACT MIST INHAL (10 ACT/4 GM) INH SCH (19:10)
[2024-06-06] MEDS ORDERED: Mometasone/Formoterol MDI 200/5 mcg 13 GM INH SCH (19:15)
[2024-06-06 19:51] LABS: Base Excess Venous 7.2 mmol/L; Bicarbonate Venous 28.9 mmol/L (24.0-30.0); PCO2 Venous 52.2 mmHg (38-42)
[2024-06-06 19:54] LABS: U Amphetamine Screen Not Detected; U Barbituate Screen Not Detected; U Benzodiazapine Screen Not Detected; U Buprenorphine Screen Not Detected; U Cannabinoids Screen DETECTED; U Cocaine Screen Not Detected; U Methadone Screen Not Detected; U Methamphetamine Screen Not Detected; U Opiates Screen Not Detected; U Oxycodone Screen Not Detected; U Phencyclidine Screen Not Detected
[2024-06-06 20:35] LABS: Influenza A, PCR NEGATIVE (NEGATIVE); Influenza B, PCR NEGATIVE (NEGATIVE); Resp Syncytial Virus, PCR NEGATIVE (NEGATIVE); SARS-Cov-2 (COVID-19) PCR, MMC NEGATIVE (NEGATIVE)
[2024-06-06] MEDS ORDERED: Ticagrelor 90 MG TABLET PO SCH (21:00)
[2024-06-06 22:17] LABS: PCO2 Venous 51.6 mmHg (38-42); pH Blood Venous 7.39 (7.34-7.37)
[2024-06-06 22:18] LABS: Base Excess Venous 6.4 mmol/L; Bicarbonate Venous 28.4 mmol/L (24.0-30.0)
[2024-06-06 22:45] VITALS: BP 85/73
[2024-06-06 23:00] VITALS: BP 99/72
[2024-06-06 23:15] VITALS: BP 89/71
[2024-06-06 23:30] VITALS: BP 103/85
[2024-06-07] VITALS (43 sets, daily range): BP systolic 49–121; BP diastolic 26–93
--- NOTE | 2024-06-07 00:11 | NUR ---
ARRIVAL TO ICU: PT ARRIVED TO ICU BED 14 VIA GURNEY AT 2245. REPORT RECEIVED FROM QUINTEN. PT SLID ACROSS TO ICU BED WITH ASSIST. PT ALERT AND ORIENTED, FOLLOWS DIRECTION AND ANSWERS SIMPLE QUESTIONS. VERY DROWSY AND FALLS ASLEEP DURING A CONVERSATION. PT ON CPAP OF 8 WITH 3L BLEED IN, SPO2 MID TO HIGH 90'S. LUNGS DIM. DENIES SOB. JOURNEYMAN POWER PLANT OPERATOR IN PLACE, PACED/AFIB WITH HR 90'S. SBP 90'S. DENIES CP/PRESSURE. PT DENIES PAIN T/O. RIGHT LEG NOTICEABLY MORE SWOLLEN/EDEMATOUS THAN LEFT, COOL TO TOUCH. PULSE CAN BE HEARD WITH DOPPLER IN RIGHT. LEFT FOOT HAS PALPABLE PULSES. PT HAS MULTIPLE SKIN TEARS AND BRUISES FROM FALLING AT HOME. COVERED WITH DRESSINGS, PHOTOS IN CHART. PIVS TO LAC AND RAC BOTH INTACT AND SALINE LOCKED. MEDEL PATENT AND DRAINING TO GRAVITY. ALL BELONGINGS ARRIVED WITH PT. BED LOW AND LOCKED, CALL LIGHT IN REACH.
[2024-06-07 02:42] LABS: Base Excess Venous 6.8 mmol/L; Bicarbonate Venous 29.9 mmol/L (24.0-30.0); PCO2 Venous 41.4 mmHg (38-42); pH Blood Venous 7.47 (7.34-7.37)
[2024-06-07 02:47] LABS: BASOPHILS ABSOLUTE AUTO 0.01 K/mm3 (0.00-0.23); BASOPHILS PERCENT AUTO 0 % (0-2); EOSINOPHILS ABSOLUTE AUTO 0.01 K/mm3 (0.00-0.68); EOSINOPHILS PERCENT AUTO 0 % (0-6); Hematocrit 38.7 % (37.0-53.0); Hemoglobin 12.9 g/dL (13.5-17.5); IMMATURE GRAN ABSOLUTE AUTO 0.06 K/mm3 (0.00-0.10); IMMATURE GRAN PERCENT AUTO 1 % (0-1); LYMPHOCYTES ABSOLUTE AUTO 0.54 K/mm3 (0.84-5.20); LYMPHOCYTES PERCENT AUTO 4 % (21-46); MONOCYTES ABSOLUTE AUTO 1.05 K/mm3 (0.16-1.47); MONOCYTES PERCENT AUTO 8 % (4-13); Mean Corpuscular HGB 32.6 pg (26.0-34.0); Mean Corpuscular HGB Conc 33.3 g/dL (31.5-36.5); Mean Corpuscular Volume 98 fL (80-100); Mean Platelet Volume 11.3 fL (9.1-12.4); NEUTROPHILS ABSOLUTE AUTO 11.51 K/mm3 (1.96-9.15); NEUTROPHILS PERCENT AUTO 87 % (41-73); NRBC ABSOLUTE 0.02 K/mm3 (0.00-0.02); NRBC Auto 0.2 /100 WBC (0.0-0.2); Platelet Count 140 K/mm3 (150-400); RDW Coefficient Variation 18.1 % (11.7-14.2); RDW Standard Deviation 63.7 fL (35.1-46.3); Red Blood Cell Count 3.96 M/mm3 (4.30-5.90); White Blood Cell Count 13.18 K/mm3 (4.00-11.30)
[2024-06-07 03:06] LABS: International Normalized Ratio 1.1; Prothrombin Time Results 11.7 Sec (9.7-11.5)
[2024-06-07 03:18] LABS: Albumin, Blood 2.8 g/dL (3.4-5.0); Albumin/Globulin Ratio 0.9 (0.8-1.8); Bilirubin, Total 0.9 mg/dL (0.1-1.0); Bun/Creatinine Ratio 27.3 (12.0-20.0); Calcium, Blood 9.1 mg/dL (8.5-10.1); Creatinine, Blood 1.32 mg/dL (0.60-1.20); Magnesium, Blood 2.4 mg/dL (1.6-2.4); Potassium, Blood 3.9 mmol/L (3.5-5.5); Total Protein, Blood 5.8 g/dL (6.4-8.2)
[2024-06-07] MEDS ORDERED: LORazepam 2 MG/ML 1ML Injection IV ONE (03:50)
--- NOTE | 2024-06-07 04:14 | NUR ---
UPDATE: PT INCREASINGLY CONFUSED. STATES HE IS IN [place], DOES NOT REMEMBER HOW HE GOT HERE. PT LAUGHING VERY LOUDLY AT RANDOM TIMES. WHEN ASKED WHAT HE IS LAUGHING AT HE STATES, "COFFEE". THEN PROCEEDS TO FALL BACK ASLEEP. PT ALSO HALLUCINATING AND GRABBING AT THE AIR. PT TAKEN FOR HEAD CT AND AMMONIA LEVEL DRAWN. RESULTS PENDING. DR. DAVIS AWARE.
--- NOTE | 2024-06-07 05:44 | NUR ---
SHIFT SUMMARY: PT REMAINS CONFUSED. A&O TO SELF. CONTINUES TO HALLUCINATE AND REACH FOR THINGS IN THE AIR, PUULING AT LINES. LAUGHS WHEN TOLD TO NOT PULL AT HIS CATHETER. REMAINS ON CPAP. SPO2 >94%. REMAINS PACED WITH HR 90'S. SBP 90-100. DENIES CP. DENIES SOB. MEDEL DRAINING FREELY. SALINE LOCKED. NPO CURRENTLY, OFFERED SWABS FOR MOUTH. BED LOW AND LOCKED.
[2024-06-07] MEDS ORDERED: Pantoprazole Sodium 40 MG Injection IV SCH (06:00)
--- NOTE | 2024-06-07 07:29 | NUR ---
Beside shift report from AMAN Baron.
--- NOTE | 2024-06-07 07:44 | NUR ---
Pt awakens to his name. Able to state that he is in [place], and at [facility]. States he [facility]. Denies pain, states that he feels "pretty good". He is sleepy, and falls back to sleep readily. RR 20/min, with CPAP on and 1.5 L O2 bleed in. Paced/atrial fib at 81-88bpm noted by bedside monitor. Removed CPAP briefly during conversation and spo2 dropped from 99 to 87% within less than 2 minutes. CPAP replaced, pt tolerating it well.
[2024-06-07] MEDS ORDERED: Aspirin 81 MG Chew PO SCH (09:00)
[2024-06-07] MEDS ORDERED: Furosemide 10 MG/ML 4ML Vial IV SCH (09:00)
[2024-06-07] MEDS ORDERED: Heparin Sodium 5000 Units/ML 1ML MDV SC SCH (09:00)
--- NOTE | 2024-06-07 09:08 | NUR ---
Family here at the bedside. Son Sebastian here, talking with me and pt. Sebastian states that the pt has had frequent episodes of confusion in the night, hallucinating and this is also when he has fallen and injured himself. This morning the pt is totally alert, oriented x 4 at this time, and cooperative and cheerfully conversant. Oral care given, pt cooperating and participating. [place] Bedside swallow evaluation completed by myself at bedside, pt passed. Given water to drink and he showed no signs of coughing, choking or dyspnea. Waiting for the doctor to round to advance diet orders as indicated.
[2024-06-07] MEDS ORDERED: Vitamin D1000 UNI1 PO (10:07)
[2024-06-07] MEDS ORDERED: VENL150ER PO (10:07)
[2024-06-07] MEDS ORDERED: JARDIANCE10 MG PO (10:08)
[2024-06-07] MEDS ORDERED: ATOR40TA PO (10:08)
[2024-06-07] MEDS ORDERED: LOSARTAN POTASS25 MG PO (10:10)
[2024-06-07] MEDS ORDERED: METO25ER PO (10:10)
[2024-06-07] MEDS ORDERED: TICA90TA PO (10:11)
[2024-06-07] MEDS ORDERED: ASPI81CH PO (10:11)
[2024-06-07] MEDS ORDERED: ALBU90OI INH (10:11)
[2024-06-07] MEDS ORDERED: FEROSUL325 M1 PO (10:13)
[2024-06-07] MEDS ORDERED: FINA5 PO (10:14)
[2024-06-07] MEDS ORDERED: GUAI600T33 PO (10:15)
[2024-06-07] MEDS ORDERED: FOLI1 PO (10:15)
[2024-06-07] MEDS ORDERED: FISH OIL 1,0001 EA10 PO (10:19)
[2024-06-07] MEDS ORDERED: AMLO10 PO (10:20)
[2024-06-07] MEDS ORDERED: TAMS.4ER PO (10:20)
[2024-06-07] MEDS ORDERED: Celexa20 MG PO (10:21)
[2024-06-07] MEDS ORDERED: HYDCHL25 PO (10:21)
[2024-06-07] MEDS ORDERED: MULVITA PO (12:54)
[2024-06-07] MEDS ORDERED: STIOLTO RESPIMAT4 G1 INH (12:54)
[2024-06-07] MEDS ORDERED: FURO40 PO (12:57)
[2024-06-07] MEDS ORDERED: SPIR25 PO (12:58)
--- NOTE | 2024-06-07 13:09 | NUR ---
pt is sitting on the side of the bed, eating lunch with a very good appetite. he is asking for a second lunch. He only had snacks and drinks for breakfast this morning.
--- NOTE | 2024-06-07 15:38 | NUR ---
Pt sleepy while sitting on the side of the bed, visiting with his son Gordon. Occasionally nods off and Spo2 decreases to 86% with brief apneic periods. Encouraged pt to put on his CPAP. At first he did not want to , but was agreeable later. Now he is on CPAP and lying on bed, 2 l/min bleed in (his baseline at home son states). B/p 95/77 (82) spo2 98% and heart rate 96, paced rhythm.
--- NOTE | 2024-06-07 15:42 | NUR ---
Call to Dr. Palacio regarding inability to do MRI since pt has a pacemaker. Updated her on pt condition this afternoon.
[2024-06-07] MEDS ORDERED: NS 1,000 ML IV SCH (16:00)
[2024-06-07] MEDS ORDERED: CefTRIAXone Sodium 1,000 MG in NS 100 ML IV SCH (18:00)
[2024-06-07] MEDS ORDERED: Azithromycin 500 MG in NS 250 ML IV SCH (18:00)
--- NOTE | 2024-06-07 18:34 | NUR ---
Kent was dc'd at 1300 and pt denies urge to void or feeling of bladder fullness. Bladder scan 158 cc at this time.
--- NOTE | 2024-06-07 19:24 | NUR ---
IVF STOPPED at this time due to sudden c/o dyspnea while wearing bipap, HR 114-120 paced and drop in blood pressure. Pt's EF is 20% per today's ECHO. Bedside report given to AMAN Narvaez.
[2024-06-07 19:47] LABS: Base Excess Venous -1.2 mmol/L; Bicarbonate Venous 23.8 mmol/L (24.0-30.0); PCO2 Venous 33.7 mmHg (38-42); pH Blood Venous 7.44 (7.34-7.37)
[2024-06-07 20:11] LABS: Bun/Creatinine Ratio 23.3 (12.0-20.0); Calcium, Blood 8.5 mg/dL (8.5-10.1); Creatinine, Blood 1.5 mg/dL (0.60-1.20); Potassium, Blood 4.9 mmol/L (3.5-5.5)
[2024-06-07] MEDS ORDERED: Miconazole Nitrate 2% 85 GM PWD TOP SCH (21:00)
[2024-06-07] MEDS ORDERED: Furosemide 10 MG/ML 4ML Vial IV ONE (21:50)
--- NOTE | 2024-06-07 22:28 | NUR ---
THIS RN ASSUMED CARE OF PT AT 1900. PT WAS ALERT AND ORIENTED X2, VERY LETHARGIC, AND CONFUSED, PT WAS STILL FOLLOWING COMMANDS. PT HEART RATE IS PACED IN THE 100s, PT BLOOD PRESSURE ON ARRIVAL TO THE SHIFT WAS 70/40s, PT WAS SYMPTOMATIC AND BERHANE GAUTHIER (PROVIDER) CAME BEDSIDE. PROVIDER ORDERED STAT CT OF HEAD, BNP, BMP AND TROPONIN. PT BEGAN GETTING SLIGHTLY BETTER AFTER CPAP WAS PUT ON. PT SOUNDED CLEAR/DIMINISHED, PT VERY TACHYPNIC. PT LEGS ARE VERY SWOLLEN BOTH PEDAL PULSES WERE DOPPLER STRONG AND PT DENIES PAIN IN LEGS AND HAS SENSATION IN BOTH LEGS. NO OTHER INTERVENTIONS AT THIS TIME, PLAN OF CARE CONTINUED.
[2024-06-08] VITALS (27 sets, daily range): BP systolic 99–155; BP diastolic 60–139
[2024-06-08] MEDS ORDERED: Bumetanide 0.25 MG/ML 4ML ViaL IV SCH (02:00)
[2024-06-08 03:27] LABS: BASOPHILS ABSOLUTE AUTO 0.02 K/mm3 (0.00-0.23); BASOPHILS PERCENT AUTO 0 % (0-2); EOSINOPHILS PERCENT AUTO 0 % (0-6); Hematocrit 41.6 % (37.0-53.0); Hemoglobin 13.6 g/dL (13.5-17.5); IMMATURE GRAN ABSOLUTE AUTO 0.07 K/mm3 (0.00-0.10); IMMATURE GRAN PERCENT AUTO 1 % (0-1); LYMPHOCYTES ABSOLUTE AUTO 0.53 K/mm3 (0.84-5.20); LYMPHOCYTES PERCENT AUTO 4 % (21-46); MONOCYTES ABSOLUTE AUTO 1.13 K/mm3 (0.16-1.47); MONOCYTES PERCENT AUTO 9 % (4-13); Mean Corpuscular HGB 32.6 pg (26.0-34.0); Mean Corpuscular HGB Conc 32.7 g/dL (31.5-36.5); Mean Corpuscular Volume 100 fL (80-100); Mean Platelet Volume 11.8 fL (9.1-12.4); NEUTROPHILS ABSOLUTE AUTO 10.61 K/mm3 (1.96-9.15); NEUTROPHILS PERCENT AUTO 86 % (41-73); Platelet Count 162 K/mm3 (150-400); RDW Standard Deviation 64.9 fL (35.1-46.3); Red Blood Cell Count 4.17 M/mm3 (4.30-5.90); White Blood Cell Count 12.36 K/mm3 (4.00-11.30)
[2024-06-08 03:46] LABS: Albumin, Blood 2.7 g/dL (3.4-5.0); Albumin/Globulin Ratio 0.8 (0.8-1.8); Bilirubin, Total 0.8 mg/dL (0.1-1.0); Bun/Creatinine Ratio 25.9 (12.0-20.0); Creatinine, Blood 1.47 mg/dL (0.60-1.20); Globulin, Blood 3.3 g/dL (2.2-4.0); Potassium, Blood 4.5 mmol/L (3.5-5.5)
[2024-06-08] MEDS ORDERED: Albumin (Human) 25gm/100ml 100 ML IV SCH (04:10)
[2024-06-08] MEDS ORDERED: Metolazone 5 MG Tab PO STA (06:01)
--- NOTE | 2024-06-08 06:26 | NUR ---
PT SUMMARY PT IS STILL ALERT AND ORIENTED X2, FOLLOWS COMMANDS, SEEMS TO HAVE GOTTEN BETTER THE NIGHT WENT ON NEUROLOGICALLY. PT DID GET A MEDEL CATHETER AND WAS HAVING LOW URINARY OUTPUT THROUHGOUT THE NIGHT ONLY PUTTING OUT 15-25ML/HR. DR. LARSEN WAS NOTIFIED THREE SEPARATE TIMES AND PROVIDER PLACED NEW ORDERS EACH TIME, DR. LARSEN SAID A NEPHRO CONSULT MAY BE NEEDED. NO OTHER ACUTE EVENTS TO REPORT OVERNIGHT. PLAN OF CARE CONTINUED.
[2024-06-08] MEDS ORDERED: Bumetanide 0.25 MG/ML 10ML Vial IV ONE (07:00)
[2024-06-08] MEDS ORDERED: Metolazone 5 MG Tab PO SCH (09:00)
[2024-06-08 09:48] LABS: Magnesium, Blood 2.4 mg/dL (1.6-2.4); Phosphorus, Blood 3.8 mg/dL (2.5-4.9)
[2024-06-08] MEDS ORDERED: AMLO10 PO (10:42)
[2024-06-08] MEDS ORDERED: STIOLTO RESPIMAT4 G1 (10:44)
[2024-06-08] MEDS ORDERED: Crestor40 MG (11:12)
[2024-06-08] MEDS ORDERED: HYDCHL25 PO (11:13)
[2024-06-08 16:33] LABS: Magnesium, Blood 2.3 mg/dL (1.6-2.4)
[2024-06-08 16:38] LABS: Bun/Creatinine Ratio 26.8 (12.0-20.0); Calcium, Blood 9.3 mg/dL (8.5-10.1); Creatinine, Blood 1.53 mg/dL (0.60-1.20); Potassium, Blood 3.7 mmol/L (3.5-5.5)
--- NOTE | 2024-06-08 18:22 | NUR ---
PT WAS ALERT AND ORIENTED APPROPRIATELY THROUGHOUT SHIFT. HE WAS PLEASANT AND COOPERATIVE. PT WAS ON 4LPM NC WITHOUT COMPLAINT OF DYSPNEA. MID SHIFT HE REQUESTED TO BE PUT BACK ON CPAP AND TOLERATED WELL. LUNG SOUNDS ARE CLEAR IN THE UPPER LOBES, DIMINISHED IN THE LOWER. HIS EDEMA IS 1+ TO 2+ RIGHT LOWER LEG IS MORE SWOLLEN, COOLER, AND WEEPING. RIGHT UPPER ARM IS SWOLLEN AND PAINFUL TO PALPATION. HIS CATHETER WAS LEAKING AT THE BEGINNING OF SHIFT AND WAS REPOSITIONED. THERE WAS AN UNMEASURED, LARGE URINE VOID. HE HAD ADEQUATE URINE OUTPUT THROUGHOUT SHIFT. UNALTERED MENTATION. VENTRICULAR PACED RATE 80S-110 AND NORMOTENSIVE.
[2024-06-08] MEDS ORDERED: Enoxaparin 40 MG/0.4 ML SYR SC SCH (20:00)
[2024-06-08] MEDS ORDERED: Atorvastatin 40 MG Tab PO SCH (21:00)
[2024-06-09] VITALS (8 sets, daily range): BP systolic 100–131; BP diastolic 76–109
[2024-06-09 04:07] LABS: BASOPHILS ABSOLUTE AUTO 0.01 K/mm3 (0.00-0.23); BASOPHILS PERCENT AUTO 0 % (0-2); EOSINOPHILS PERCENT AUTO 0 % (0-6); Hematocrit 41.3 % (37.0-53.0); Hemoglobin 14.2 g/dL (13.5-17.5); IMMATURE GRAN ABSOLUTE AUTO 0.06 K/mm3 (0.00-0.10); IMMATURE GRAN PERCENT AUTO 1 % (0-1); LYMPHOCYTES ABSOLUTE AUTO 0.74 K/mm3 (0.84-5.20); LYMPHOCYTES PERCENT AUTO 7 % (21-46); MONOCYTES ABSOLUTE AUTO 1.09 K/mm3 (0.16-1.47); MONOCYTES PERCENT AUTO 10 % (4-13); Mean Corpuscular HGB 32.9 pg (26.0-34.0); Mean Corpuscular HGB Conc 34.4 g/dL (31.5-36.5); Mean Corpuscular Volume 96 fL (80-100); Mean Platelet Volume 11.6 fL (9.1-12.4); NEUTROPHILS ABSOLUTE AUTO 9.38 K/mm3 (1.96-9.15); NEUTROPHILS PERCENT AUTO 83 % (41-73); Platelet Count 199 K/mm3 (150-400); RDW Coefficient Variation 17.6 % (11.7-14.2); RDW Standard Deviation 61.6 fL (35.1-46.3); Red Blood Cell Count 4.31 M/mm3 (4.30-5.90); White Blood Cell Count 11.28 K/mm3 (4.00-11.30)
[2024-06-09 04:32] LABS: Albumin, Blood 3.1 g/dL (3.4-5.0); Bilirubin, Total 1.1 mg/dL (0.1-1.0); Bun/Creatinine Ratio 26.2 (12.0-20.0); Calcium, Blood 9.1 mg/dL (8.5-10.1); Creatinine, Blood 1.6 mg/dL (0.60-1.20); Globulin, Blood 3.2 g/dL (2.2-4.0); Magnesium, Blood 2.2 mg/dL (1.6-2.4); Phosphorus, Blood 4.1 mg/dL (2.5-4.9); Potassium, Blood 3.9 mmol/L (3.5-5.5); Total Protein, Blood 6.3 g/dL (6.4-8.2)
[2024-06-09] MEDS ORDERED: Levothyroxine Sodium 0.025 MG Tab PO SCH (06:00)
[2024-06-09] MEDS ORDERED: Venlafaxine HCl 75 MG CapCR PO SCH (09:00)
[2024-06-09] MEDS ORDERED: Bumetanide 0.25 MG/ML 4ML ViaL IV SCH (09:00)
[2024-06-09] MEDS ORDERED: Ferrous Sulfate 325 MG Tab PO SCH (09:00)
[2024-06-09] MEDS ORDERED: Tamsulosin HCl 0.4 MG Cap PO SCH (09:00)
[2024-06-09] MEDS ORDERED: Finasteride 5 MG Tab PO SCH (09:00)
[2024-06-09] MEDS ORDERED: Metolazone 2.5 MG Tab PO SCH (09:00)
[2024-06-09] MEDS ORDERED: Multivitamins 1 Tab PO SCH (09:00)
--- NOTE | 2024-06-09 15:53 | NUR ---
PER RT PT WILL REQUIRE CPAP UPON D/C CREATIVE ARTS MUSIC THERAPIST REPORTS THAT PT COULD NEED A REPEAT SLEEP STUDY TO QUALIFY FOR CPAP AND THAT HE WOULD NEED NHV, CARE MANAGEMENT IS AT THE BEDSIDE AT THIS TIME UPDATING FAMILY. PT HAS BEEN RESTING WELL T/O THE DAY. HE IS ON 2L O2 VIA NASAL CANNULA, NO SOB REPORTED, EVEN CHEST RISE AND FALL NOTED. PT WITH GOOD APPETITE TODAY. HE CONTINUES TO HAVE GOOD URINE OUTPUT WITH DIURETICS, NO CHANGE IN EDEMA DURING THIS SHIFT. VSS. HE IS A/O X4. ABLE TO MAKE NEEDS KNOWN. FAMILY AT BEDSIDE
[2024-06-09] MEDS ORDERED: Polyethylene Glycol 3350 17 gm PO SCH (18:00)
[2024-06-10 03:12] VITALS: BP 152/114
[2024-06-10] MEDS ORDERED: Bacitracin Zinc Oint 1GRAM UD Packet TOP SCH (04:05)
--- NOTE | 2024-06-10 04:53 | NUR ---
SHIFT SUMMARY. PT ARRIVED IN UNIT AROUND ~2330 LAST NIGHT. HAS DONE WELL SINCE ARRIVAL. ANSWERS ORIENTATION QUESTIONS APPROPRIATELY BUT IS POOR HISTORIAN, IS VERY FORGETFUL, AND REQUIRES FREQUENT REEDUCATION/REDIRECTION. REMAINS VERY PLEASANT THROUGHOUT. HAS WORN 4 L O2 VIA NC AND MAINTAINED ADEQUATE SATURATION FOR MOST PART, WORE BIPAP FOR A LITTLE WHILE BUT BECAME RESTLESS AND HAS NOT BEEN ABLE TO TOLERATE SINCE. CONTINUES TO DENY PAIN. ABLE TO REPOSITION SELF INDEPENDENTLY. MEDEL REMAINS IN PLACE, NO COMPLAINTS OF PAIN OR PRESSURE AND DRAINING TOGRAVITY. HAS BEEN RUNNING PACED ON TELE SINCE ARRIVAL. VITALS STABLE. EARLY THIS MORNING WHEN ATTEMPTING TO TRANSFER PT TO [facility], NOTICED THAT PT WAS BLEEDING THROUGH SOCK ON LEFT FOOT. TOOK SOCK OFF TO REVEAL THAT PT SECOND TOE WAS BLEEDING. NOTIFIED RESIDENT DR. MENON WHO ORDERED CULTURE SWAB AND GAVE DIRECTIONS FOR WOUND CARE ORDERS. ORDERS INPUT, WOUND NOW CLEANED, DRESSED. SHIFT OTHERWISE UNREMARKABLE. BED LOCKED IN LOWEST POSITION. CALL LIGHT LEFT WITHIN REACH. CONTINUING TO MONITOR.
[2024-06-10 06:07] LABS: Albumin, Blood 3.1 g/dL (3.4-5.0); Bilirubin, Total 1.1 mg/dL (0.1-1.0); Bun/Creatinine Ratio 34.9 (12.0-20.0); Calcium, Blood 9.5 mg/dL (8.5-10.1); Creatinine, Blood 1.49 mg/dL (0.60-1.20); Globulin, Blood 3.2 g/dL (2.2-4.0); Total Protein, Blood 6.3 g/dL (6.4-8.2)
[2024-06-10 07:17] VITALS: BP 117/79
[2024-06-10] MEDS ORDERED: Spironolactone 25 MG Tab PO SCH (09:00)
[2024-06-10] MEDS ORDERED: Empagliflozin 10 MG TAB PO SCH (09:00)
[2024-06-10] MEDS ORDERED: Bumetanide 0.25 MG/ML 4ML ViaL IV SCH ×2 (09:00→18:00)
[2024-06-10] MEDS ORDERED: Metoprolol Succinate 25 MG TABCR PO SCH (09:00)
[2024-06-10 14:00] VITALS: BP 104/74
[2024-06-10] MEDS ORDERED: Melatonin 3 MG Tab PO PRN (17:05)
[2024-06-10 17:36] VITALS: BP 98/83
[2024-06-10 17:48] LABS: Anion Gap 14 mmol/L (3-11); Blood Urea Nitrogen 55 mg/dL (8-24); Bun/Creatinine Ratio 33.5 (12.0-20.0); CO2, Blood 26 mmol/L (21-32); Calcium, Blood 9.2 mg/dL (8.5-10.1); Chloride, Blood 95 mmol/L (98-108); Creatinine, Blood 1.64 mg/dL (0.60-1.20); Glomerular Filtration Rate 43 (60-); Glucose, Blood 188 mg/dL (70-99); Phosphorus, Blood 4.2 mg/dL (2.5-4.9); Potassium, Blood 3.4 mmol/L (3.5-5.5); Sodium, Blood 132 mmol/L (136-145)
[2024-06-10] MEDS ORDERED: Albumin Human 50 ML IV ONE (18:15)
--- NOTE | 2024-06-10 18:46 | NUR ---
SHIFT SUMMARY A&O X4, AGITATED AT TIMES. PT CAN BE DIFFICULT TO REDIRECT AT TIMES. HR IN THE 80'S, PACED RHYTHM, BP'S SOFT IN THE 90'S-100'S. PT ON 2-4L VIA NC, HE DESATS TO THE 80'S BUT RECOVERS WITH DEEP BREATHING. HE WEARS CPAP AT HOME BUT REPORTS NON COMPLIANCE, PT WEARING HOSPITAL BIPAP AT NIGHT. MEDEL CATH IN PLACE DRAINING TO GRAVITY. PT WITH DISCOLORATION OF THE BLE AND COOL TO TOUCH. HE HAS WOUNDS OF THE BUE AND 2ND LEFT TOE, WOUND DRESSING ORDERS PER EMAR. PROVIDER ORDERED ALBUMIN, INFUSING PER EMAR. INCREASE OF DIURETIC ORDERED. PT WITH SOFT BPS BELOW PARMETERS IN THE LOW 90'S-100'S. PER PROVIDER GIVE DIURETICS STILL AND WATCH BP. PT PLACED ON 1000ML FREE WATER RESTRICTION. WILL MONITOR PT AND REPORT TO PROFESSIONAL APPLICATION DESIGNER RN.
[2024-06-10] MEDS ORDERED: Morphine Sulfate 20 MG/1ML 1 ML Oral Syringe PO SCH (21:00)
[2024-06-10 21:02] VITALS: BP 130/92
[2024-06-10 23:40] VITALS: BP 93/72
[2024-06-11] VITALS (14 sets, daily range): BP systolic 80–126; BP diastolic 60–99
[2024-06-11] MEDS ORDERED: TraZODone HCl 50 MG Tab PO PRN (00:30)
[2024-06-11] MEDS ORDERED: Potassium Chloride 20 MEQ TabCR PO ONE ×2 (00:30→13:00)
--- NOTE | 2024-06-11 02:59 | NUR ---
SHIFT SUMMARY- POTASSIUM REPLACED NEURO: A/OX4. EQUAL STRENGTH THROUGHOUT. GENERALIZED WEAKNESS. MUMBLED SPEECH (DENTURES OUT) BASELINE PER FAMILY. PERRLA. MELATONIN, ROXANOL, AND TRAZADONE GIVEN FOR SLEEP WITHOUT EFFECT. LUNGS: CLEAR UPPER LOBES, CRACKLES IN BASES. CPAP AND OXYMIZER AT NIGHT. POOR PULSE OX PLETH. MULTIPLE SITES ATTEMPTED. DUSKY NAIL BEDS AND ACROCYANOSIS NOTED. FAMILY STATES PRESENT SINCE SD. CARDIAC: V PACED. 14 BEAT RUN OF VTACH. K REPLACED, MAG LAB ORDERD. BLE, GENERALIZED AND SCROTAL EDEMA PRESENT. FORTINO BLE. DOPPLER PEDAL PULSES, STRONG RADIAL PULSES. GI/: MEDEL FLUSHED DT BLADDER SPASM. PT REPORTS NO PAIN OR BLADDER PRESSURE WHEN SPASM. YELLOW CLEAR URINE. NO BM. UMBILICUS HERNIA. BRUISING LLQ. SKIN: VERY FRAGILE. SEVERAL WOUNDS/SKIN TEARS THROUGHOUT.
[2024-06-11 04:51] LABS: Bun/Creatinine Ratio 34.9 (12.0-20.0); Calcium, Blood 9.5 mg/dL (8.5-10.1); Creatinine, Blood 1.66 mg/dL (0.60-1.20); Potassium, Blood 3.6 mmol/L (3.5-5.5)
[2024-06-11] MEDS ORDERED: Albumin Human 50 ML IV SCH (09:30)
[2024-06-11] MEDS ORDERED: Bumetanide 0.25 MG/ML 4ML ViaL IV SCH (10:00)
[2024-06-11] MEDS ORDERED: Midodrine 5 MG Tab PO SCH (13:00)
--- NOTE | 2024-06-11 18:34 | NUR ---
SHIFT SUMMARY PT A&O X4, ABLE TO MAKE NEEDS KNOWN, OBEYS COMMANDS, ABLE TO AMBULATE ONE PERSON ASSIST TO CHAIR WITH FWW, HOLDING APPROPRIATE CONVERSATION /SPEECH PAM DELEON, FAMILY MENTIONED TO THIS RN THAT PT SEEMS TO BE SUNDOWNING AT HOME. CONTINUOUS SPO2, SPO2 DIFFICULT TO MONITOR DUE TO POOR PROFUSION/ATTEMPTED NOSE/EAR/FINGER/TOE PROBES/CURRENTLY USING FOREHEAD PROBE, WHEN SPO2 PLETH IS GOOD SPO2 READS GREATER THAN 90%, PT ON 3L NC, UPPER LOBES SOUND CLEAR/RIGHT LOWER LOBE SOUNDS COARSE CRACKLES/ LEFT LOWER LOBES FINE CRACKELS. CONTINUOUS TELE MONITORING, PACED RHYTHM, HR 80-110 S, SBP 80-100 THIS SHIFT/MD AWARE, MAP MAINTAINING GREATER THAN 65, PULSES PRESENT T/O PEDAL PULSES FAINT, PT HAVING POOR PROFUSION TO EXTREMITIES /FEET TURING PURPLE COLORED WHEN SITTING IN CHAIR /WHEN LEGS ELEVATED BLE REDDED WITH LESS PURPLE COLOR /FAMILY STATES THAT HAS BEEN HIS NEW NORMAL SINCE [place], PT HAVING PITTING EDEMA TO RIGHT LE . MEDEL CATH IS SECURE /PATENT /DRAINING TO DRAVITY, URINE YELLOW IN COLOR. NO BM THIS SHIFT, BOWEL TONES PRESENT IN ALL 4Q, BOWEL CARE MEDS GIVEN PER ORDERS. PT HAS SKIN TEAR ON RIGHT FOREARM, SKIN BREAK DOWN TO LEFT 2ND TOE FROM ADMISSION IN [facility] SPO2 PROBE, OPEN ABRASION TO RIGHT FOOT THAT FAMILY STATES FROM WHEN PT FELL PRIOR TO THIS ADMISSION. DR. STEVENS TO BEDSIDE THIS AM, THIS RN DISCUSSED HESITANCE TO GIVE ALDACTONE/BUMEX/FLOMAX/METOPROLOL/ZAROXOLYN DUE TO PT SBP 80-90, MD WANTING MEDICATIONS GIVEN. MEDICATIONS GIVEN BY THIS RN AND BP TAKEN MORE FREQUENT.
[2024-06-12 00:20] VITALS: BP 109/91
[2024-06-12 02:13] LABS: Base Excess Venous 9.1 mmol/L; Bicarbonate Venous 30.9 mmol/L (24.0-30.0); PCO2 Venous 50.8 mmHg (38-42); pH Blood Venous 7.43 (7.34-7.37)
[2024-06-12 02:38] LABS: Bun/Creatinine Ratio 38.3 (12.0-20.0); Calcium, Blood 9.4 mg/dL (8.5-10.1); Creatinine, Blood 1.67 mg/dL (0.60-1.20); Magnesium, Blood 2.1 mg/dL (1.6-2.4); Phosphorus, Blood 4.4 mg/dL (2.5-4.9); Potassium, Blood 3.5 mmol/L (3.5-5.5)
--- NOTE | 2024-06-12 05:36 | NUR ---
MEDEL REMOVED DT LEAKING AT 0530.
[2024-06-12] MEDS ORDERED: Pantoprazole Sodium 20 MG Tab PO SCH (06:00)
--- NOTE | 2024-06-12 06:06 | NUR ---
SHIFT SUMMARY- FAMILY WANTS GOALS OF CARE MEETING NEURO: A/OX4. EQUAL STRENGTH THROUGHOUT. GENERALIZED WEAKNESS. MUMBLED SPEECH (DENTURES OUT) BASELINE PER FAMILY. PERRLA. MELATONIN, ROXANOL, AND TRAZADONE GIVEN FOR SLEEP WITHOUT EFFECT. COPY OF CARDIAC STENT CARDS PLACED IN PAPER CHART IN CASE MRI RE-ORDERED. INTERMITTENT PERIODS OF CONFUSION. PT SLEPT APPROX 6 HOURS. LUNGS: CLEAR UPPER LOBES, CRACKLES IN BASES AND MID LEFT LOBE. CXR AND VBG ORDERED. INCREASED WORK OF BREATHING NOTED AT BEGINNING OF SHIFT. IMPROVED AFTER CPAP. POOR PULSE OX PLETH. CARDIAC: V PACED. BLE, GENERALIZED AND SCROTAL EDEMA PRESENT. FORTINO/ MAROON BLE. WEAK/DOPPLER PEDAL PULSES. DUSKY NAILBEDS. DURING DEEP TURNS, PTS HAND BECOME WHITE AND LOOSE THE ABILITY TO BRIANNE. VERIFIED CODE STATUS WITH PATIENT. GI/: MEDEL FLUSHED TO RULE OUT CLOGGING CONCERN. PT VOIDING AROUND MEDEL AND MULTIPLE INCONTINENT EPISODES. MEDEL REMOVED AND EXTERNAL CATHETER PLACED. YELLOW CLEAR URINE, INCREASE OUTPUT NOTED BUT INACCURATE COUNTS DT MEDEL LEAKS. NO BM. UMBILICUS HERNIA. BRUISING LLQ. SKIN: VERY FRAGILE. SEVERAL WOUNDS/SKIN TEARS THROUGHOUT. DUSKY APPEARANCE.
[2024-06-12 07:49] VITALS: BP 110/85
[2024-06-12] MEDS ORDERED: Bumetanide 0.25 MG/ML 4ML ViaL IV SCH (09:00)
[2024-06-12 11:16] VITALS: BP 90/65
[2024-06-12 13:00] VITALS: BP 96/78
--- NOTE | 2024-06-12 13:52 | NUR ---
GOALS OF CARE MET WITH PT, DTR, BOTH SONS, ANGI AND G-SON AT BEDSIDE. PT'S , FAYE JOINED US ON SPEAKER PHONE. PT IS KNOWN TO THIS WATERWORKS CHIEF ENGINEER FROM THE COMMUNITY SETTING. OFFER OF ALTERNATE PC RN IN PLACE OF THIS THIS PC RN GIVEN. PT DECLINED ALTERNATE PC RN. HE AND FAMILY WELCOMING OF THIS PC RN'S VISIT. THIS PC RN COLLABORATED WITH PROVIDER AND BEDSIDE NURSING PRIOR TO THIS VISIT. PC VISIT. KAVYA CONTINUES TO DISPLAY WORK OF BREATHING. HE DENIES DYSPNEA/CP. A/O X3. INTERMITTENT CONFUSION (IE. STATING YESTERDAY WHEN THE EVENT WAS A WEEK AGO. MIXING WORDS UP). PLEASANT AND ABLE TO MAKE NEEDS KNOWN. THOUROUGH EDUCATION WITH PT AND FAMILY RE: CPR VS DNR, RISKS AND BENEFITS. PT AND FAMILY ASKED QUESTIONS APPROPRIATE TO CODE STATUS. EDUCATION PROVIDED FOR ALL THREE LEVELS OF MEDICAL INTERVENTIONS. SON JANET AND JUAN JARVIS BOTH ACCURATELY RESTATED THE VARIOUS LEVELS OF CARES. PT AND HIS SPOKE BY PHONE AND DECIDED TOGETHER TO FOCUS ON COMFORT AND ELECT FOR DNR/VESSEL ENGINEER. PRIMARY RN CALLED PROVIDER TO RETURN TO PT'S ROOM TO REVIEW CODE STATUS AND CARE GOALS WHILE FAMILY IS PRESENT AND IS ON THE PHONE. THIS PC RN RECAPPED CONVERSATIONS OF PT/FAMILY TO PROVIDER. PROVIDER IN AGREEMENT WITH PT'S DECESSION TO CHANGE FOCUS OF CARE TO COMFORT. NEW POLST FORM FILLED OUT TO REFLECT DNR/VESSEL ENGINEER. POLST SIGNED BY PROVIDER IN THE ROOM. PT'S , FAYE REPORTS A GOOD RAPPORT WITH [facility] AND REQUEST [facility]. HOSPICE REQUEST FORWARDED TO CARE MANAGMENT. BEDSIDE NURSING AND FUNCTIONAL DIRECTOR UPDATED ON GOALS CHANGE. PROVIDER REPORTS SHE WILL BE PLACING COMFORT CARE ORDERS.
[2024-06-12] MEDS ORDERED: Morphine Sulfate 10 MG/ML 1MLSYR IV PRN (17:45)
[2024-06-12] MEDS ORDERED: Scopolamine Hydrobromide Patch TOP PRN (17:45)
[2024-06-12] MEDS ORDERED: LORazepam 1 MG Tab PO PRN (17:45)
--- NOTE | 2024-06-12 18:00 | NUR ---
SHIFT SUMMARY THIS MORNING PT WAS A BIT LETHARGIC FALLING ASLEEP WHEN THIS RN WAS ASKING QUESTIONS, ROUGHLY AN HOUR LATER PT BECAME MORE ALERT, PT IS ORIENTED TO ALL QUESTIONS AT THIS TIME, ABLE TO MAKE NEEDS KNOWN, OBEYS COMMANDS, ABLE TO AMBULATE ONE PERSON ASSIST TO CHAIR WITH FWW, HOLDING APPROPRIATE CONVERSATION /SPEECH PAM DELEON. CONTINUOUS SPO2 DC D THIS SHIFT PER UPDATED TO PLAN OF CARE, SPO2 DIFFICULT TO MONITOR DUE TO POOR PROFUSION, WHEN SPO2 PLETH IS GOOD SPO2 READS GREATER THAN 90%, PT ON 3L NC, UPPER LOBES SOUND CLEAR/RIGHT LOWER LOBE SOUNDS CRACKLES/ LEFT LOWER LOBES CRACKELS. CONTINUOUS TELE MONITORING DC D THIS SHIFT PER UPDATED TO PLAN OF CARE, PACED RHYTHM, HR 80-110 S, SBP 90-110 THIS SHIFT, MAP MAINTAINING GREATER THAN 65, PULSES PRESENT T/O HOWEVER PEDAL PULSES FAINT, PT HAVING POOR PROFUSION TO EXTREMITIES /FEET TURING PURPLE COLORED WHEN SITTING IN CHAIR /WHEN LEGS ELEVATED BLE REDDED WITH LESS PURPLE COLOR, PT HAVING PITTING EDEMA TO RIGHT LOWER EXTREMITE THAT IS WORSE COMPARTED TO THE EDEMA IN THE LEFT LOWER LEG. PUREWICK IN PLACE CONNECTED TO LOW CONTINUOUS SUCTION, URINE YELLOW IN COLOR. NO BM THIS SHIFT, HYPOACTIVE BOWEL TONES PRESENT IN ALL 4Q, BOWEL CARE MEDS GIVEN PER ORDERS. PT HAS SKIN TEAR ON RIGHT FOREARM, SKIN BREAK DOWN TO LEFT 2ND TOE FROM ADMISSION IN [facility] SPO2 PROBE, OPEN ABRASION TO RIGHT FOOT, DRESSINGS ARE C/D/I. DR. STEVENS ROUNED THIS MORNING AND DISCUSSED IN DEPTH ABOUT PLAN OF CARE AND CODE STATUS. PALLATIVE CARE CAME @ APPROX 1145, DR. STEVENS CAME BACK TO THE ROOM AND PLAN OF CARE UPDATED.
--- NOTE | 2024-06-13 05:27 | NUR ---
SHIFT SUMMARY PT RESTING COMFORTABLY AT THIS TIME. PT FORGETFUL THROUGHOUT NIGHT OTHERWISE ALERT AND OREINTED. PT OFF TELE MONITORING. NO VS TAKEN. PT SLEEPING THROUGHOUT NIGHT WITH CPAP ON. PT RECEIVED ONE DOSE OF PRN 1MG ATIVAN PO D/T RESTLESSNESS, GIVEN WITH GOOD EFFECT. PT USING MALE PUREWICK WITH NO ISSUES, ADEQUATE OUTPUT. PTs FAMILY AT BEDSIDE THROUGHOUT NIGHT. BED ALARM ON WITH CALL MESSER WITHIN REACH. NO FURTHER QUESTIONS OR CONCERNS AT THIS TIME.
== END 2024-06-13 12:56 | disposition hospice, home (50) | DRG 871 ==
LOC: ER 16:05 → ICUE 16:06 → ERHOLD 16:06 → ICUE 16:07 → PCU 06-09 23:20
PROVIDERS: Emergency Medicine; Family Medicine; Internal Medicine; Nurse Practitioner Acute Care; Student in an Organized Health Care Education/Training Program; ADMIT Student in an Organized Health Care Education/Training Program
PROC: 3E03329 Introduction of Other Anti-infective into Peripheral Vein, Percutaneous Approach (ICD-10-PCS; principal; 2024-06-06)
PROC: 5A09457 Assistance with Respiratory Ventilation, 24-96 Consecutive Hours, Continuous Positive Airway Pressure (ICD-10-PCS; 2024-06-07)
PROC: 30233J1 Transfusion of Nonautologous Serum Albumin into Peripheral Vein, Percutaneous Approach (ICD-10-PCS; 2024-06-08)
DX: A41.9 Sepsis, unspecified organism (principal); G92.8 Other toxic encephalopathy; J18.9 Pneumonia, unspecified organism; I21.A1 Myocardial infarction type 2; I50.23 Acute on chronic systolic (congestive) heart failure; J96.01 Acute respiratory failure with hypoxia; Z66 Do not resuscitate; J96.02 Acute respiratory failure with hypercapnia; I62.03 Nontraumatic chronic subdural hemorrhage; N17.9 Acute kidney failure, unspecified; E87.20 Acidosis, unspecified; E87.1 Hypo-osmolality and hyponatremia; I44.2 Atrioventricular block, complete; I47.20 Ventricular tachycardia, unspecified; I11.0 Hypertensive heart disease with heart failure; R65.20 Severe sepsis without septic shock; J44.9 Chronic obstructive pulmonary disease, unspecified; G47.33 Obstructive sleep apnea (adult) (pediatric); Z96.652 Presence of left artificial knee joint; E03.9 Hypothyroidism, unspecified; I25.10 Atherosclerotic heart disease of native coronary artery without angina pectoris; K21.9 Gastro-esophageal reflux disease without esophagitis; N40.0 Benign prostatic hyperplasia without lower urinary tract symptoms; M25.421 Effusion, right elbow; E66.9 Obesity, unspecified; F41.9 Anxiety disorder, unspecified; F32.A Depression, unspecified; G47.00 Insomnia, unspecified; S81.811A Laceration without foreign body, right lower leg, initial encounter; E78.5 Hyperlipidemia, unspecified; I08.1 Rheumatic disorders of both mitral and tricuspid valves; I27.20 Pulmonary hypertension, unspecified; K59.00 Constipation, unspecified; Z68.33 Body mass index [BMI] 33.0-33.9, adult; I71.40 Abdominal aortic aneurysm, without rupture, unspecified; F10.10 Alcohol abuse, uncomplicated; R74.01 Elevation of levels of liver transaminase levels; S51.811D Laceration without foreign body of right forearm, subsequent encounter; S81.812D Laceration without foreign body, left lower leg, subsequent encounter; S81.811D Laceration without foreign body, right lower leg, subsequent encounter; Z95.5 Presence of coronary angioplasty implant and graft; Z79.890 Hormone replacement therapy; Z79.891 Long term (current) use of opiate analgesic; Z79.899 Other long term (current) drug therapy; Z95.0 Presence of cardiac pacemaker; Z88.8 Allergy status to other drugs, medicaments and biological substances; Z98.890 Other specified postprocedural states; Z87.891 Personal history of nicotine dependence
CPT/HCPCS: 0241U; 36415; 51701; 51702; 70450; 71045; 73080; 80048; 80053; 80069; 82140; 82803; 82947; 83605; 83735; 83880; 84100; 84145; 84443; 84484; 85025; 85610; 87040; 87081; 93005; 93010; 93971; 94640; 94644; 94660; 94664; 94762; 97162; 99285-25; A9270; C8929; J0456; J0696; J1650; J1940; J2470; J7030; J7050; P9047; Q9957